=== PATIENT | male | born 1955 | race Caucasian/White ===

== ENCOUNTER 2018-05-20 11:14 | Outpatient (CLI) | payer MEDICARE ==
[~2018-05-20] VITALS: Ht 170.2 cm; Wt 90.9 kg
--- NOTE | ~2018-05-20 | OP ---
PATIENT NAME: HAILE CABEZAS MEDICAL RECORD: [id number] :51 LOCATION:D.CAT ADMISSION DATE: SURGEON: NILO HOLMAN MD DATE OF OPERATION: 05/20/2018 PROCEDURE: Left heart catheterization, selective coronary angiography, left femoral artery approach. CATHETERS: A 5-Greenlandic sheath, 5/4 left and right Michelle, 5/4 pig. We attempted PTCA stenting at the end of procedure. FINDINGS: Left ventriculography in 30-degree GUSTAFSON view shows severe global hypokinesis, reduced EF at 20% to 25%. CORONARY ANATOMY: LEFT MAIN: Left main is free of disease. LAD: Has an apparently totally occluded stent with left to left collaterals. CIRCUMFLEX: Left dominant system. Circumflex stents patent. RIGHT CORONARY ARTERY: Rudimentary, totally occluded. We did the PTCA. Multiple wires were attempted to be passed across the occluded LAD in hopes to be soft plaque; however, despite multiple wires we were unable to cross the total occlusion and the procedure was terminated with continued DAPHNE 3 flow distal to the lesion. OVERALL IMPRESSION: Unsuccessful PTCA stenting of the LAD. TRANSINT:[id number] Voice Confirmation ID: [id number] DOCUMENT ID: [id number] NILO HOLMAN MD at 1314 CC: [id number] DICTATION DATE: 05/20/18 1521 GEOLOGICAL SPECIALIST: 05/20/18 1528 DEP CLI 05/20/18 [place] [id number] [place] [id number]
--- NOTE | ~2018-05-20 | HEMODYNAMI ---
PATIENT:HAILE CABEZAS MEDICAL RECORD: [id number] : 51 LOCATION:[facility] ADMISSION DATE: 05/20/18 Generatedon:05/20/201815:13 Patient name: HAILE CABEZAS Patient #: [id number] SSN: : 1955 Date of study: 05/20/2018 Page: Of Hemodynamic Procedure Report Patient Data Patient Demographics Procedure consent was obtained First Name: HAILE Gender: Male Last Name: JOCELYNN : 1955 Patient #: [id number] Age: 62 year(s) Race: Unknown Additional ID: [id number] Contact details Address: [place] [address] State: [place] City: [place] Zip code: [address] Past Medical History Allergies Allergen Reaction Date Comments Reported Other allergy 05/20/2018 corticosteroids, Erythromycin base, morphine, PCN, Sulfa Admission Admission Data Admission Date: 05/20/2018 Admission Time: 11:14 Height (in.): 68 BSA: 2.07 (m2) Height (cm.): 172.72 BMI: 31.17 (kg/m2) Weight (lbs.): 205 Weight (kg.): 92.99 Procedure Procedure Types Cath Procedure Diagnostic Procedure [facility] w/Coronaries Sedation Charges Moderate Sedation up to 30 minutes Procedure Description Procedure Date Procedure Date: 05/20/2018 Procedure Start Time: 14:36 Procedure End Time: 15:10 Procedure Staff Name Function Luis Avery MD Performing Physician Nicola Parekh RT Scrub Paige Lunsford RT Monitor Gavin Aguilar RN Nurse Procedure Data Cath Procedure Fluoroscopy Diagnostic fluoroscopy Total fluoroscopy Time: 8.9 time: 8.9 min min Diagnostic fluoroscopy Total fluoroscopy dose: dose: 2094 mGy 2094 mGy Contrast Material Contrast Material Type Amount (ml) Isovue 300 117 Entry Location Entry Primary Successful Side Size Upsize Upsize Entry Closure Succes sful Closure Location (Fr) 1 (Fr) 2 (Fr) Remarks Device Remarks Femoral Left 5 Fr 6 Fr Exoseal artery Short Estimated blood loss: 10 ml Diagnostic catheters Device Type Used For End Catheter Placement MULTIPACK JL 4.0 5Fr Procedure catheter MULTIPACK 3DRC 5Fr Procedure catheter MULTIPACK Pigtail 5 Fr Procedure catheter Procedure Complications No complications Procedure Medications Medication Administration Route Dosage 0.9% NaCl I.V. 10 ml/hr Oxygen etCO2 Nasal cannula 2 l/min Heparin Flush Bag added to field 2 bags (1000units/500ml NS) Lidocaine 2% added to field 20 Versed I.V. 2 mg Fentanyl I.V. 100 mcg Heparin Bolus I.V. 5000 units Integrilin (Bolus I.V. 8.5 ml 2mg/ml) Integrilin (Bolus wasted 1.5 ml 2mg/ml) Hemodynamics Rest O2 Consumption: Estimated: 241.12 (ml/min) O2 Consumption indexed: Estimated:116 .48 (ml/min/m) Heart Rate: 69 (bpm) Pressure Samples Time Site Value (mmHg) Purpose Heart Use Rate(bpm) 14:49 LV 116/14,25 Snapshot 69 14:50 LV 113/16,27 Pullback 71 14:50 AO 111/55(78) Pullback 71 Gradients Valve Time Site 1 Site 2 Mean SEP/DFP Peak To Heart Use (mmHg) (sec/min) Peak Rate (mmHg) (bpm) Aortic 14:50 LV AO 1 13 2 71 113/16,27 111/55(78) Calculations Valve P-P Mean Valve Index Valve Source Name Gradient Area Flow (cm2) Aortic 2 1 2 1 Snapshots Pre Cath Intra NCS Post Cath Vital Signs Time Heart Resp SPO2 etCO2 NIBP (mmHg) Rhythm Pain Sedation Rate (ipm) (%) (mmHg) Status Level (bpm) 14:27:14 77 23 99 30.7 135/62(106) NSR 0 (11) 10(A) , No pain 14:32:01 72 14 100 14.2 123/67(95) NSR 0 (11) 10(A) , No pain 14:36:46 73 22 100 30.7 129/71(109) NSR 0 (11) 10(A) , No pain 14:41:28 71 20 100 28.4 123/70(101) NSR 0 (11) 10(A) , No pain 14:46:11 71 16 98 29.9 123/71(94) NSR 0 (11) 10(A) , No pain 14:51:00 70 14 95 8.9 119/63(85) NSR 0 (11) 10(A) , No pain 14:55:46 69 13 96 13.4 124/62(89) NSR 0 (11) 9(A) , No pain 15:00:31 68 13 97 24.6 120/61(81) NSR 0 (11) 9(A) , No pain 15:05:16 68 13 97 26.9 122/60(99) NSR 0 (11) 10(A) , No pain 15:10:01 69 15 100 32.1 130/72(110) NSR 0 (11) 10(A) , No pain Medications Time Medication Route Dose Verified Delivered Reason Notes Effectiveness by by 14:25:30 0.9% NaCl I.V. 10 Gavin Gavin Per physician ml/hr Jeff Aguilar RN RN 14:25:39 Oxygen etCO2 2 Gavin Gavin Per physician Nasal l/min Jeff Aguilar cannula RN RN 14:25:50 Heparin Flush added 2 Gavin Gavin used for Bag to bags Jeff Aguilar procedure (1000units/500ml RN RN NS) 14:26:02 Lidocaine 2% added 20ml Gavin Gavin for local to vial Jeff Aguilar anesthetic field MONZON RN 14:38:59 Versed I.V. 2 mg Gavin Gavin for sedation Jeff Aguilar RN RN 14:39:10 Fentanyl I.V. 100 Gavin Gavin for sedation mcg Jeff Aguilar RN RN 14:53:58 Heparin Bolus I.V. 5000 Gavin Gavin for units Jeff Aguilar anticoagulation RN RN 14:54:11 Integrilin I.V. 8.5 Gavin Gavin for (Bolus 2mg/ml) ml Jeff Aguilar antiplatelet RN RN therapy 14:54:19 Integrilin wasted 1.5 Gavin Gavin for (Bolus 2mg/ml) ml Jeff Aguilar antiplatelet RN RN therapy Procedure Log Time Note 13:58:31 Patient Height : 68 inches 13:58:38 Patient Weight : 205 lbs 13:59:30 Diagnostic Cath status Elective 13:59:33 Gavin Aguilar RN sent for patient. Start room use. 13:59:34 Time tracking: Regular hours (M-F 7:00 - 5:00) 13:59:41 Plan of Care:Hemodynamics will remain stable., Cardiac rhythm will remain stable., Comfort level will be maintained., Respiratory function will remain adequate., Patient/ family verbilizes understanding of procedure., Procedure tolerated without complication., Recovers from procedure without complications.. 14:08:00 Patient received from Pre/Post Procedure Room to CCL 1 Alert and oriented. Tansferred to table in Supine position. 14:12:55 Warm blankets applied, and simran hugger turned on for patient comfort. 14:12:57 Correct patient and procedure confirmed by team. 14:12:59 Signed procedure consent form obtained from patient. 14:13:01 ECG and BP/O2 sat monitors applied to patient. 14:13:15 H&P Date Dictated: 05/15/2018 Within 30 days and on chart., H&P Addendum completed by physician on day of procedure. (MUST COMPLETE FOR ALL OUTPATIENTS). 14:13:17 Pre-procedure instructions explained to patient. 14:13:19 Family in patients room. 14:13:21 Patient NPO since Midnight. 14:14:09 Patient allergic to Other allergycorticosteroids, Erythromycin base, morphine, PCN, Sulfa 14:14:13 Is the patient allergic to Iodine/contrast media? No. 14:14:14 Was the patient premedicated? Yes 14:14:17 Is patient on blood thinner?Yes 14:25:30 0.9% NaCl 10 ml/hr I.V. was administered by Gavin Aguilar RN; Per physician; 14:25:39 Oxygen 2 l/min etCO2 Nasal cannula was administered by Gavin Aguilar RN; Per physician; 14:25:50 Heparin Flush Bag (1000units/500ml NS) 2 bags added to field was administered by Gavin Aguilar RN; used for procedure; 14:26:02 Lidocaine 2% 20ml vial added to field was administered by Gavin Aguilar RN; for local anesthetic; 14:26:12 Vital chart was started 14:28:24 ACC The patient was administered the following blood thiners within the last 24 hours: ACCEffient 14:28:27 Patient diabetic? Yes. 14:28:28 If diabetic: On Metformin? No 14:28:37 Snore? Yes 14:28:38 Sleep apnea? Yes 14:28:49 Patient pain scale 0/10 ?. 14:29:01 IV patent on arrival in right forearm with 0.9% NaCl at [facility]. 14:29:06 Lab results completed and on chart. 14:29:10 Bilateral groins area was prepped with chlora-prep and draped in sterile fashion 14:29:12 Sharps counted by scrub and verified by R.N. 14:29:12 Alarms reviewed by R. N. 14:29:13 Physician paged 14:29:14 --------ALL STOP TIME OUT------ 14:29:14 Physician arrived 14:29:15 Final Timeout: patient, procedure, and site verified with staff and physician. All members of the team are in agreement. 14:29:18 Bilateral groins site verified by team. 14:29:22 Physical assessment completed. ASA score P 2 - A patient with mild systemic disease as per Luis Avery MD. 14:29:26 Sedation plan: IV Moderate Sedation Medication:Versed, Fentanyl 14:31:09 Use device set Femoral Dx 14:31:10 ACIST Syringe (09986) opened to sterile field. 14:31:11 Bag Decanter (2002) opened to sterile field. 14:31:12 DIAGNOSTIC WIRE .035 260cm J wire (415462) opened to sterile field. 14:31:12 Medline Cath Pack ([id number]) opened to sterile field. 14:31:13 ACIST Hand Control (10763) opened to sterile field. 14:31:14 DIAGNOSTIC Multipack 5Fr catheter set (EQ5633) opened to sterile field. 14:31:14 ACIST Manifold (24091) opened to sterile field. 14:31:15 Tegaderm 4 x 4 (1626W) opened to sterile field. 14:31:17 PERCUTANEOUS ENTRY 19GA needle opened to sterile field. 14:31:18 SHEATH Prelude 5Fr 0.035 (QXF-1K-52-035) opened to sterile field. 14:34:36 Full Disclosure recording started 14:34:36 Procedure started. 14:36:25 Local anesthetic to right femoral artery with Lidocaine 2% by Luis Avery MD.INITIAL ACCESS ONLY 14:36:48 Zero performed for pressure channel P1 14:36:57 Zero performed for pressure channel P1 14:37:09 Zero performed for pressure channel P1 14:38:59 Versed 2 mg I.V. was administered by Gavin Aguilar RN; for sedation; 14:39:10 Fentanyl 100 mcg I.V. was administered by Gavin Aguilar RN; for sedation; 14:40:59 Unable to access Rt groin. 14:41:14 Local anesthetic to left femerol artery with Lidocaine 2% by Luis Avery MD.ADDITIONAL ACCESS 14:41:26 A 5 Fr sheath was inserted into the Left Femoral artery 14:44:35 A MULTIPACK JL 4.0 5Fr catheter was advanced over the wire and used for Procedure. 14:44:59 LCA angiography performed. 14:47:34 Catheter removed. 14:47:41 A MULTIPACK 3DRC 5Fr catheter was advanced over the wire and used for Procedure. 14:47:46 RCA angiography performed. 14:48:35 Catheter removed. 14:48:49 A MULTIPACK Pigtail 5 Fr catheter was advanced over the wire and used for Procedure. 14:48:55 LV angiography performed. 14:48:59 LV gram done using GUSTAFSON 14:50:41 EF : 20 % 14:50:46 Catheter removed. 14:51:32 WHISPER 300cm guide wire ([id number]) opened to sterile field. 14:51:33 GUIDE 6FR XBLAD 3.5 catheter ([id number]) opened to sterile field. 14:51:47 SHEATH Prelude 6Fr 0.035 (DGP-0H-73-035) opened to sterile field. 14:51:47 INFLATOR Merit BasixCompak (DS8904) opened to sterile field. 14:51:56 Proceeding to intervention. 14:52:07 6 Fr XBLAD 3.5 guide catheter was inserted over the wire 14:52:42 Whisper wire advanced. 14:53:58 Heparin Bolus 5000 units I.V. was administered by Gavin Aguilar RN; for anticoagulation; 14:54:11 Integrilin (Bolus 2mg/ml) 8.5 ml I.V. was administered by Gavin Aguilar RN; for antiplatelet therapy; 14:54:19 Integrilin (Bolus 2mg/ml) 1.5 ml wasted was administered by Gavin Aguilar RN; for antiplatelet therapy; 15:01:02 Whisper wire unable to cross lesion 15:01:08 cougar wire advanced. 15:01:22 COUGAR 300cm guide wire ([id number]) opened to sterile field. 15:03:03 cougar unable to cross lesion. 15:03:31 CHOICE PT Extra Support J 300cm guide wire ([id number]) opened to sterile field. 15:06:49 The EMERGE OTW 3.0 x 15 balloon ([id number]) was advanced and then removed because in body, not inflated 15:07:12 choice pt unable to cross the lesion. 15:07:18 Wire removed. 15:07:19 Guide catheter removed. 15:07:32 EXOSEAL 6Fr (EX600) opened to sterile field. 15:08:03 Sheath removed intact; hemostasis achieved with Exoseal to the Left Femoral artery. 15:08:03 Sheath upsized to a 6 Fr Short. 15:08:12 Procedure ended.(Physican Out) 15:08:31 Fluoroscopy time 08.90 minutes. 15:08:37 Fluoroscopy dose: 2094 mGy 15:08:37 Flurop Dose total: 2094 15:08:42 Contrast amount:Isovue 300 117ml. 15:08:44 Sharps counted by scrub and verified by R.N. 15:08:46 Insertion/operative site no bleeding no hematoma. 15:08:49 Post-op/insertion site Right Femoral artery dressed using a 4 x 4 and Tegaderm. 15:08:52 Post Procedure Pulses reassessed and unchanged 15:08:56 Post procedure rhythm: unchanged. 15:08:59 Estimated blood loss: 10 ml 15:09:41 Procedure type changed to Cath procedure, Diagnostic procedure, LHC, C w/Coronaries, Sedation Charges, Moderate Sedation up to 30 minutes 15:09:43 Procedure and supply charges have been captured, reviewed, submitted and are correct. 15:10:07 Procedure Complication : No complications 15:10:10 Vital chart was stopped 15:10:11 See physician's report for complete and final results. 15:10:14 Report given to Pre/Post Procedure Room. 15:10:17 Patient transfered to Pre/Post Procedure Room with Stretcher. 15:10:19 Full Disclosure recording stopped 15::19 Procedure ended. 15:10:22 End room use (Document Last) Intervention Summary Intervention Notes Time ActionType Lesion and Equipment Action# Pressure Duration Attributes Used 15:06:49 Discard EMERGE OTW Balloon 3.0 x 15 balloon ([id number]) Device Usage Item Name Manufacture Quantity Catalog Number Hospital Part Current Minimal Lot# / Charge Number Stock Stock Serial# Code ACIST Syringe Acist 1 03859 321386 994614 104245 20 (53874) Medical Systems MooBella Bag Decanter Microtek 1 2001S 256072 86813 369501 5 (2001S) Medical Inc. Medline Cath Cardinal 1 [id number] 677592 31621 190903 5 Pack Health ([id number]) DIAGNOSTIC WIRE St Omar 1 066639 884612 008905 382572 30 .035 260cm J wire (827307) ACIST Hand Acist 1 04815 893154 846302 408176 5 Control (22256) Medical Systems Inc ACIST Manifold Acist 1 43953 571226 931073 146532 5 (05621) Medical Systems Inc DIAGNOSTIC Cardinal 1 [id number] 403107 47996 196755 30 Multipack 5Fr Health catheter set (IE7631) Tegaderm 4 x 4 3M 1 1626W 653991 781516 909585 5 (1626W) PERCUTANEOUS Cook Medical 1 S97209 796513 674850 5 ENTRY 19GA needle SHEATH Prelude Merit 1 [id number]-5Z-[id number] 748663 320359 987654 5 5Fr 0.035 Medical (JRN-8M-87-035) MULTIPACK JL Cardinal 1 122286 5 4.0 5Fr Health catheter MULTIPACK 3DRC Cardinal 1 780144 5 5Fr catheter Health MULTIPACK Cardinal 1 491249 5 Pigtail 5 Fr Health catheter WHISPER 300cm [place] 1 [id number] 154116 981600 862385 5 guide wire Vascular ([id number]) GUIDE 6FR XBLAD Cardinal 1 [id number] 279289 329636 346330 10 3.5 catheter Health (68417572) INFLATOR Merit Merit 1 WJ5405 990728 071225 610720 15 BasixCast Iron Systems Medical (DP9813) SHEATH Prelude Merit 1 JOH-0N-17-35 152835 9248970 470110 5 6Fr 0.035 Medical (SJQ-0L-34-035) COUGAR 300cm Lomas 1 [id number] 837977 303610 553275 1 guide wire Vascular ([id number]) CHOICE PT Extra [place] 1 [id number] 915623 675047 996523 5 Support J 300cm Scientific guide wire ([id number]) EMERGE OTW 3.0 [place] 1 [id number] 773171 083600 088398 5 [id number] x 15 balloon Scientific ([id number]) EXOSEAL 6Fr Cardinal 1 EX600 145481 787330 559418 10 (EX600) Health Signature Audit [place] Stage Time Signature Unsigned Intra-Procedure 05/20/2018 Paige Lunsford 3:11:07 PM RT(R) Signatures Monitor : Paige Lunsford Signature : RT Date : Time : [place] [id number] [place] [address]
[2018-05-20] MEDS ORDERED: PRINIVIL20 MG (12:02)
[2018-05-20] MEDS ORDERED: KLONOPIN1 MG PO (12:02)
[2018-05-20] MEDS ORDERED: COREG25 MG PO (12:03)
[2018-05-20] MEDS ORDERED: EFFIENT10 MG PO (12:03)
[2018-05-20] MEDS ORDERED: GABAPENTIN100 MG PO (12:03)
[2018-05-20] MEDS ORDERED: VERELAN180 MG PO (12:03)
[2018-05-20] MEDS ORDERED: BASAGLAR K100 UNIT/1 SC (12:04)
[2018-05-20] MEDS ORDERED: NOVOLIN 70/30 110 ML (12:04)
[2018-05-20] MEDS ORDERED: RENVELA800 MG PO (12:05)
[2018-05-20] MEDS ORDERED: BUMEX2 MG (12:06)
[2018-05-20 12:14] VITALS: BP 120/59; Ht 170.2 cm; Wt 90.9 kg
[2018-05-20 12:15] LABS: BASOPHILS 0.5 % (0-2); EOSINOPHILS 2.5 % (0-7); HEMATOCRIT 28.7 % (42.0-54.0); HEMOGLOBIN 9.4 g/dL (13.5-17.5); IMMATURE GRANULOCYTES 0.4 % (0-5); LYMPHOCYTES 14.3 % (15-50); MCH 34.1 pg (26.0-34.0); MCHC 32.8 g/dL (31.0-37.0); MEAN PLATELET VOLUME 10.3 fL (7.4-10.4); MONOCYTES 12.1 % (2-11); NEUTROPHILS 70.2 % (40-80); PLATELET COUNT 148 10x3/uL (130-400); RBC 2.76 10x6/uL (4.20-6.10); RDW 14.5 % (11.5-14.5); WBC 5.6 10x3/uL (4.8-10.8)
[2018-05-20 12:26] LABS: ANION GAP 16.4 mmol/L (8-16); CALCIUM 8.9 mg/dL (8.5-10.1); CARBON DIOXIDE 27.1 mmol/L (21.0-32.0); CREATININE - SERUM 8.6 mg/dL (0.6-1.3); POTASSIUM - SERUM 4.5 mmol/L (3.5-5.1)
[2018-05-20 12:27] LABS: INR 1.07 (0.85-1.17); PROTIME 13.5 SECONDS (11.6-15.0)
[2018-05-20] MEDS ORDERED: ENTRESTO 24 MG1 EACH PO (15:59)
== END 2018-05-20 18:37 | disposition home or self-care (01) ==
LOC: D.CATH 11:14
PROVIDERS: Internal Medicine Interventional Cardiology
DX: I25.119 Atherosclerotic heart disease of native coronary artery with unspecified angina pectoris (principal); I25.82 Chronic total occlusion of coronary artery; Z01.812 Encounter for preprocedural laboratory examination; Z95.5 Presence of coronary angioplasty implant and graft

== ENCOUNTER 2018-09-04 10:44 | Outpatient (CLI) | payer MEDICARE ==
[2018-05-20 12:14] VITALS: BMI 31.4
[~2018-09-04 10:44] MED LIST: BASAGLAR K100 UNIT/1 SC; BUMEX2 MG; COREG25 MG PO; EFFIENT10 MG PO; ENTRESTO 24 MG1 EACH PO; GABAPENTIN100 MG PO; KLONOPIN1 MG PO; NOVOLIN 70/30 110 ML; PRINIVIL20 MG; RENVELA800 MG PO; VERELAN180 MG PO
--- NOTE | 2018-09-04 11:37 | NUR ---
RECEIVED PT FOR ADMISSION. PT'S REPORTS THAT PT HAD DIALYSIS ON SATURDAY AND HASN'T FELT VERY GOOD EVER SINCE. TOOK HIS VITALS. TEMP 101.1 HR 86 BP 107/48. 02 SAT 94% ON ROOM AIR. RESP 16. PT'S REPORTS THAT HE IS MORE LETHARGIC THAN NORMAL AND IS HAVING TROUBLE WALKING DUE TO WEAKNESS. HE HAD TO BE BROUGHT IN BY WHEELCHAIR. FLU SWAB SENT DOWN. SPOKE WITH DR. DUARTE AND PROCEDURE IS CANCELLED FOR TODAY. HE STATES HE WILL COME BY AND SPEAK WITH THE PT, BUT TO GO AHEAD AND FEED HIM FOR NOW. SPOKE WITH PT AND PT'S FAMILY AND THEY VOICED UNDERSTANDING.
--- NOTE | 2018-09-04 13:04 | NUR ---
DR. DUARTE ROUNDED AND SPOKE WITH PT AND PT'S . PT TO SEE PCP AT 3 PM TODAY. WILL RESCHEDULE AT A LATER TIME. PT TAKEN OUT B WHEELCHAIR TO VEHICLE.
== END 2018-09-04 13:05 | disposition home or self-care (01) ==
LOC: D.CATH 10:44
DX: I25.10 Atherosclerotic heart disease of native coronary artery without angina pectoris (principal); I10 Essential (primary) hypertension; E11.9 Type 2 diabetes mellitus without complications; Z01.812 Encounter for preprocedural laboratory examination; Z01.811 Encounter for preprocedural respiratory examination; Z01.810 Encounter for preprocedural cardiovascular examination; Z53.9 Procedure and treatment not carried out, unspecified reason

== ENCOUNTER 2018-09-11 11:16 | Outpatient (CLI) | payer MEDICARE ==
[~2018-09-11] VITALS: Ht 170.2 cm; Wt 90.9 kg
--- NOTE | ~2018-09-11 | HEMODYNAMI ---
PATIENT:HAILE CABEZAS MEDICAL RECORD: [id number] : 51 LOCATION:[facility] ADMISSION DATE: 09/11/18 Generatedon:09/11/201813:57 Patient name: HAILE CABEZAS Patient #: [id number] SSN: : 1955 Date of study: 09/11/2018 Page: Of Hemodynamic Procedure Report Patient Data Patient Demographics Procedure consent was obtained First Name: HAILE Gender: Male Last Name: JOCELYNN : 1955 Middle Initial: YUDITH Age: 63 year(s) Patient #: [id number] Race: Unknown Additional ID: [id number] Contact details Address: [place] [address] State: [place] City: [place] Zip code: [address] Past Medical History Allergies Allergen Reaction Date Comments Reported Other allergy 05/20/2018 corticosteroids, Erythromycin base, morphine, PCN, Sulfa Other allergy 09/11/2018 on chart Admission Admission Data Admission Date: 09/11/2018 Admission Time: 11:16 Admit Source: Other Lab Results Lab Result Date: 09/11/2018 Lab Result Time: 11:55 Biochemistry Name Units Result Min Max BUN mg/dl 52 --(----)-* 7 18 Creatinine mg/dl 6.7 --(----)-* 0.6 1.3 CBC Name Units Result Min Max Hematocrit % 28.9 *-(----)-- 42 54 Hemoglobin g/dl 9.5 *-(----)-- 13.5 17.5 Procedure Procedure Types Cath Procedure Peripheral Cath Diagnostic Procedure Women Designer Peripheral Procedures Euvdo-Ywcaheb-Deu-Off Procedure Description Procedure Date Procedure Date: 09/11/2018 Procedure Start Time: 13:36 Procedure End Time: 13:47 Procedure Staff Name Function Luis Avery MD Performing Physician Nicola Parekh RT Monitor Kenneth Mcpherson RT Scrub Jefe Donnelly RN Nurse Procedure Data Cath Procedure Fluoroscopy Diagnostic fluoroscopy Total fluoroscopy Time: 0.4 time: 0.4 min min Diagnostic fluoroscopy Total fluoroscopy dose: 152 dose: 152 mGy mGy Contrast Material Contrast Material Type Amount (ml) Isovue 300 108 Entry Location Entry Primary Successful Side Size Upsize Upsize Entry Closure Succes sful Closure Location (Fr) 1 (Fr) 2 (Fr) Remarks Device Remarks Femoral Right 5 Fr Exoseal artery Estimated blood loss: 5 ml Diagnostic catheters Device Type Used For End Catheter Placement DIAGNOSTIC UF 5Fr Procedure catheter ([id number]) Procedure Complications No complications Procedure Medications Medication Administration Route Dosage Versed I.V. 2 mg Fentanyl I.V. 100 mcg Versed I.V. 1 mg Fentanyl I.V. 50 mcg Versed I.V. 1 mg Oxygen etCO2 Nasal cannula 2 l/min Lidocaine 2% added to field 20 Heparin Flush Bag added to field 2 bags (1000units/500ml NS) 0.9% NaCl I.V. 25 ml/hr Hemodynamics Rest Heart Rate: 73 (bpm) Snapshots Pre Cath Intra NCS Post Cath Vital Signs Time Heart Resp SPO2 etCO2 NIBP Rhythm Pain Sedation Rate (ipm) (%) (mmHg) (mmHg) Status Level (bpm) 13:30:45 77 20 94 14.3 131/46(75) NSR 0 (11) 10(A) , No pain 13:35:03 73 16 94 30.2 129/44(90) NSR 0 (11) 10(A) , No pain 13:39:21 71 14 93 19.6 127/44(75) NSR 0 (11) 10(A) , No pain 13:43:37 79 14 96 22.6 118/48(87) NSR 0 (11) 9(A) , No pain 13:47:49 74 14 94 15.8 129/50(86) NSR 0 (11) 10(A) , No pain Medications Time Medication Route Dose Verified Delivered Reason Notes Effectiveness by by 13:30:55 Oxygen etCO2 2 Luis Mayberry used for Nasal l/min [facility] Prakash Donnelly sales and service representative cannula 13:35:02 Lidocaine 2% added 20ml Luis Smith for local to vial [facility] anesthetic field MD STRINGRE 13:35:08 Heparin Flush added 2 Luis Smith used for Bag to bags [facility] procedure (1000units/500ml field MD STRINGER NS) 13:36:55 0.9% NaCl I.V. 25 Luis Mayberry Per Pt is on ml/hr [facility] Prakash Donnelly RN physician hemodialysis. 13:37:01 Versed I.V. 2 mg [address] [facility] Prakash Donnelly RN sedation 13:37:07 Fentanyl I.V. 100 [address] for mcg [facility] Prakash Donnelly RN sedation 13:40:30 Versed I.V. 1 mg Luis Mayberry for [facility] Prakash Donnelly RN sedation 13:40:33 Fentanyl I.V. 50 Luis Mayberry for mcg [facility] Prakash Donnelly RN sedation 13:45:01 Versed I.V. 1 [address] [facility] Prakash Donnelly RN sedation Procedure Log Time Note 13:02:27 Informed consent obtained and on chart 13:03:18 Admit Source: Other 13:03:32 Diagnostic Cath status Elective 13:03:35 Jefe Donnelly RN sent for patient. Start room use. 13:03:36 Time tracking: Regular hours (M-F 7:00 - 5:00) 13:03:40 Plan of Care:Hemodynamics will remain stable., Cardiac rhythm will remain stable., Comfort level will be maintained., Respiratory function will remain adequate., Patient/ family verbilizes understanding of procedure., Procedure tolerated without complication., Recovers from procedure without complications.. 13:14:27 H&P Date Dictated: 09/11/2018 New H&P dictated by physician.. 13:14:43 Patient received from Pre/Post Procedure Room to CCL 1 Alert and oriented. Tansferred to table in Supine position. 13:14:44 Warm blankets applied, and simran hugger turned on for patient comfort. 13:14:44 Correct patient and procedure confirmed by team. 13:14:45 ECG and BP/O2 sat monitors applied to patient. 13:14:46 Pre-procedure instructions explained to patient. 13:14:46 Pre-op teaching completed and patient verbalized understanding. 13:14:47 Family in waiting room. 13:14:48 Patient NPO since Midnight. 13:29:25 Vital chart was started 13:30:55 Oxygen 2 l/min etCO2 Nasal cannula was administered by Jefe Donnelly RN; used for procedure; 13:32:32 Patient allergic to Other allergyon chart 13:32:34 Is the patient allergic to Iodine/contrast media? No. 13:32:35 Is patient on blood thinner?Yes 13:32:37 ACC The patient was administered the following blood thiners within the last 24 hours: ACCEffient 13:32:39 Patient diabetic? Yes. 13:32:40 If diabetic: On Metformin? No 13:32:42 Previous problem with sedation/anesthesia? No ? 13:32:42 Snore? Yes 13:32:43 Sleep apnea? Yes 13:32:43 Deviated septum? No 13:32:44 Opens mouth fully? Yes 13:32:45 Sticks out tongue? Yes 13:32:48 Dentures? No ? 13:32:49 Airway obstruction? No ? 13:32:53 Pre procedure: right dorsailis pedis pulse Doppler 13:32:56 Pre procedure: left dorsailis pedis pulse Doppler 13:32:58 Patient pain scale 0/10 ?. 13:34:11 IV patent on arrival in right forearm with 0.9% NaCl at [facility]. 13:34:13 Lab results completed and on chart. 13:35:02 Lidocaine 2% 20ml vial added to field was administered by Luis Avery MD; for local anesthetic; 13:35:08 Heparin Flush Bag (1000units/500ml NS) 2 bags added to field was administered by Luis Avery MD; used for procedure; 13:35:35 Lab Result : BUN 52 mg/dl 13:35:35 Lab Result : Hemoglobin 9.5 g/dl 13:35:35 Lab Result : Creatinine 6.7 mg/dl 13:35:35 Lab Result : Hematocrit 28.9 % 13:35:39 Bilateral groins area was prepped with chlora-prep and draped in sterile fashion 13:35:39 Alarms reviewed by R. N. 13:35:39 Sharps counted by scrub and verified by R.N. 13:35:42 ACIST Syringe (95375) opened to sterile field. 13:35:43 Bag Decanter (2002S) opened to sterile field. 13:35:43 Medline Cath Pack ([id number]) opened to sterile field. 13:35:44 ACIST Hand Control (08298) opened to sterile field. 13:35:44 ACIST Manifold (81929) opened to sterile field. 13:35:45 Tegaderm 4 x 4 (1626W) opened to sterile field. 13:35:46 SHEATH 5FR Alum Bank ([id number]) opened to sterile field. 13:35:48 DIAGNOSTIC WIRE .035 260cm J wire (817934) opened to sterile field. 13:35:58 Baseline sample Acquired. 13:36:01 Rhythm: sinus rhythm 13:36:02 Full Disclosure recording started 13:36:05 Physician arrived 13:36:05 --------ALL STOP TIME OUT------ 13:36:05 Final Timeout: patient, procedure, and site verified with staff and physician. All members of the team are in agreement. 13:36:08 Bilateral groins site verified by team. 13:36:11 Physical assessment completed. ASA score P 3 - A patient with severe systemic disease as per Luis Avery MD. 13:36:15 Sedation plan: IV Moderate Sedation Medication:Versed, Fentanyl 13:36:21 Procedure started. 13:36:23 Local anesthetic to right femoral artery with Lidocaine 2% by Luis Avery MD.INITIAL ACCESS ONLY 13:36:30 A 5 Fr sheath was inserted into the Right Femoral artery 13:36:44 A DIAGNOSTIC UF 5Fr catheter ([id number]) was advanced over the wire and used for Procedure. 13:36:55 0.9% NaCl 25 ml/hr I.V. was administered by Jefe Donnelly RN; Per physician; Pt is on hemodialysis. 13:36:55 Zero performed for pressure channel P1 13:37:01 Versed 2 mg I.V. was administered by Jefe Donnelly RN; for sedation; 13:37:07 Fentanyl 100 mcg I.V. was administered by Jefe Donnelly RN; for sedation; 13:37:22 Abdominal angiogram w/ runoff was performed. 13:37:59 Left leg runoff performed. 13:39:21 Right leg runoff performed. 13:40:30 Versed 1 mg I.V. was administered by Jefe Donnelly RN; for sedation; 13:40:33 Fentanyl 50 mcg I.V. was administered by Jefe Donnelly RN; for sedation; 13:43:01 Catheter removed. 13:43:07 EXOSEAL 5Fr (EX500) opened to sterile field. 13:43:33 Sheath removed intact; hemostasis achieved with Exoseal to the Right Femoral artery. 13:43:35 Procedure ended.(Physican Out) 13:44:40 Fluoroscopy time 00.40 minutes. 13:44:43 Fluoroscopy dose: 152 mGy 13:44:43 Flurop Dose total: 152 13:44:47 Contrast amount:Isovue 300 108ml. 13:44:48 Sharps counted by scrub and verified by R.N. 13:45:01 Versed 1 mg I.V. was administered by Jefe Donnelly RN; for sedation; 13:45:05 Insertion/operative site no bleeding no hematoma. 13:45:08 Post-op/insertion site Right Femoral artery dressed using a 4 x 4 and Tegaderm. 13:45:11 Post right femoral artery:stable, soft, clean and dry 13:46:10 Post Procedure Pulses reassessed and unchanged 13:46:12 Post-procedure physical assessment completed. ASA score P 3 - A patient with severe systemic disease as per Luis Avery MD. 13:46:21 Post procedure rhythm: sinus rhythm 13:46:34 Estimated blood loss: 5 ml 13:46:53 Post procedure instruction explained to patient.Patient verbalizes understanding. 13:46:53 Patient needs reinforcement of post procedure teaching. 13:47:25 Procedure and supply charges have been captured, reviewed, submitted and are correct. 13:47:27 Procedure Complication : No complications 13:47:28 Vital chart was stopped 13:47:29 See physician's report for complete and final results. 13:47:30 Report given to Pre/Post Procedure Room. 13:47:32 Patient transfered to Pre/Post Procedure Room with Stretcher. 13:47:34 Procedure ended. 13:47:34 Full Disclosure recording stopped 13:47:42 End room use (Document Last) Device Usage Item Name Manufacture Quantity Catalog Hospital Part Current Minimal L ot# / Number Charge Number Stock Stock Serial# Code ACIST Acist 1 52290 096551 294015 499128 20 Syringe Medical (57654) Systems Inc Bag Microtek 1 441465 06124 991985 5 Decanter Medical Inc. () Medline Medline 1 [id number] 704699 44909 290295 5 Cath Pack ([id number]) ACIST Hand Acist 1 75919 960863 773588 573803 5 Control Medical (57758) Systems Inc ACIST Acist 1 51637 195226 938692 124467 5 Manifold Medical (95641) Systems Inc Tegaderm 4 3M 1 1626W 482084 268644 062564 5 x 4 (1626W) SHEATH 5FR Terumo 1 [id number] 660962 840929 315016 5 Alum Bank (KDC596) DIAGNOSTIC St Omar 1 010082 280881 921527 332620 30 WIRE .035 260cm J wire (365442) DIAGNOSTIC Cardinal 1 [id number] 690133 535111 691516 10 UF 5Fr Health catheter ([id number]) EXOSEAL 5Fr Cardinal 1 EX500 638459 562787 292537 10 (EX500) Health Signature Audit [place] Stage Time Signature Unsigned Intra-Procedure 09/11/2018 Nicola Parekh 1:57:20 PM RT(R) Signatures Monitor : Nicola Parekh RT Signature : Date : Time : [id number] [place] [address]
[2018-09-11 11:52] VITALS: BP 99/44; Ht 170.2 cm; Wt 90.9 kg
[2018-09-11 12:12] LABS: ANION GAP 14.3 mmol/L (8-16); CALCIUM 9.2 mg/dL (8.5-10.1); CARBON DIOXIDE 27.9 mmol/L (21.0-32.0); CREATININE - SERUM 6.7 mg/dL (0.6-1.3); POTASSIUM - SERUM 4.2 mmol/L (3.5-5.1)
[2018-09-11 13:09] LABS: HEMATOCRIT 28.9 % (42.0-54.0); HEMOGLOBIN 9.5 g/dL (13.5-17.5); LYMPHOCYTES 19.6 % (15-50); MCH 36.1 pg (26.0-34.0); MCHC 32.9 g/dL (31.0-37.0); MCV 109.9 fL (80.0-100.0); MEAN PLATELET VOLUME 10.1 fL (7.4-10.4); NEUTROPHILS 70.2 % (40-80); PLATELET COUNT 165 10x3/uL (130-400); RBC 2.63 10x6/uL (4.20-6.10); RDW 15.2 % (11.5-14.5); WBC 4.7 10x3/uL (4.8-10.8)
--- NOTE | 2018-09-11 14:13 | NUR ---
RECEIVED PT TO ROOM, PT SLEEPING, AWAKENS EASILY TO VERBAL STIMULI. DENIES ANY C/O. DRESSING CDI TO RIGHT GROIN, AREA IS SOFT AND NONTENDER. PEDAL PULSES BY DOPPLER. HOB IS FLAT, VSS. AT BEDSIDE, DR HOLMAN HAS ROUNDED ON PT. CALL LIGHT IN REACH.
--- NOTE | 2018-09-11 14:29 | NUR ---
DRESSING CDI TO RIGHT GROIN, AREA IS SOFT AND NONTENDER. PEDAL PULSES BY DOPPLER. PT SLEEPING INTERMITTENTLY, AWAKENS EASILY AND DENIES ANY C/O. HOB IS FLAT, AT BEDSIDE.
--- NOTE | 2018-09-11 14:58 | NUR ---
DRESSING CDI RIGHT GROIN, AREA IS SOFT AND NONTENDER. PEDAL PULSES BY DOPPLER. VSS, DENIES ANY C/O. HOB ELEVATED 30 DEGREES, SANDWICH AND PO FLUIDS SERVED. FAMILY AT BEDSIDE. CALL LIGHT IN REACH.
--- NOTE | 2018-09-11 15:14 | NUR ---
DDRESSING CDI TO RIGHT GROIN, PEDAL PULSES BY DOPPLER. PT DENIES ANY C/O. SANDWICH AND PO FLUIDS AT BEDSIDE. AND DAUGHTER AT BEDSIDE. HOB ELEVATED 45 DEGREES. VSS. CALL LIGHT IN REACH.
--- NOTE | 2018-09-11 15:54 | NUR ---
DRESSING REMAINS CDI, AREA IS SOFT AND NONTENDER. PT DENIES ANY C/O. HAS TOLERATED SANDWICH AND PO FLUIDS WITH NO C/O NAUSEA. IV DC'D WITH CATH INTACT. DC INSTRUCTIONS REVIEWED WITH PT AND WHO VERBALIZE UNDERSTANDING.
--- NOTE | 2018-09-11 16:17 | NUR ---
ASSISTED PT WITH DRESSING FOR DC TO HOME. DRESING REMAINS CDI TO RIGHT GROIN, AREA IS SOFT AND NONTENDER. PT DENIES ANY C/O. PT HAS ALL PERSONAL BELONGINGS AND DC INSTRUCTIONS AT TIME OF DC. PT ESCORTED TO PRIVATE AUTO VIA WC BY NURSE WITH DRIVING HIM HOME.
--- NOTE | 2018-09-16 15:01 | HP ---
PATIENT: HAILE CABEZAS MEDICAL RECORD: [id number] ACCOUNT: [id number] LOCATION:[facility] : 51 ADMISSION DATE: 09/11/18 PCP: EUSEBIA LEAL MD HISTORY AND PHYSICAL EXAMINATION INTERIM HISTORY AND PHYSICAL HISTORY OF PRESENT ILLNESS: A 63-year-old gentleman admitted with a history of coronary artery disease, recently presented with claudication was scheduled to undergo abdominal femoral runoff; however, he had upper respiratory tract infection that required postpone of the above procedure. PAST MEDICAL HISTORY: Includes; 1. History of renal failure. 2. Hypertension. 3. Diabetes mellitus. PHYSICAL EXAMINATION: GENERAL: A middle-aged gentleman in no acute distress. HEENT: Normocephalic, atraumatic. NECK: No bruits noted. HEART: Regular, II/ systolic ejection murmur. LUNGS: Good air excursion. ABDOMEN: Soft, nontender. EXTREMITIES: Pulse was decreased. IMPRESSION AND PLAN: Abdominal femoral runoff, intervention based on above. TRANSINT:[id number] Voice Confirmation ID: [id number] DOCUMENT ID: [id number] NILO HOLMAN MD at 1501 CC: [id number] DICTATION DATE: 09/11/18 1310 GARMENT FORM ASSEMBLER: 09/11/18 1353 DEP CLI 09/11/18 [id number] [place] [address]
--- NOTE | 2018-09-16 15:01 | OP ---
PATIENT NAME: HAILE CABEZAS MEDICAL RECORD: [id number] :51 LOCATION:[facility] ADMISSION DATE: SURGEON: NILO HOLMAN MD DATE OF OPERATION: 09/11/2018 PROCEDURE: AFRO. Right femoral artery was cannulated. IMT catheter was placed to the level of the renal arteries. AFRO was performed. Abdominal aorta shows no evidence of dissection. Multiple calcific areas. No evidence of aneurysm. LEFT SYSTEM: Left iliac system shows a discrete stenosis in mid portion of probably 80%. Distal to the SFA, this shows severe diffuse stenosis, was probably greater than 90% throughout the vessel with poor 2-vessel runoff distally. RIGHT: Right iliac system has an ostial stenosis at the takeoff of the bifurcation of about 80% distally. At the takeoff of the SFA, there is again severely diffuse diseased right SFA with 2-vessel albeit poor runoff distally. 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 We will consult Dr. Fajardo for other option. TRANSINT:[id number] Voice Confirmation ID: [id number] DOCUMENT ID: [id number] NILO HOLMAN MD at 1501 CC: [id number] DICTATION DATE: 09/11/18 1425 INJECTOR ASSEMBLER: 09/11/18 1801 DEP CLI 09/11/18 [id number] [place] [address]
== END 2018-09-11 16:10 | disposition home or self-care (01) ==
LOC: D.CATH 11:16
PROVIDERS: Internal Medicine Interventional Cardiology
DX: E11.51 Type 2 diabetes mellitus with diabetic peripheral angiopathy without gangrene (principal); I70.213 Atherosclerosis of native arteries of extremities with intermittent claudication, bilateral legs

== ENCOUNTER → 2018-09-25 09:48 | Outpatient (CLI) | payer MEDICARE ==
[2018-09-11 11:52] VITALS: BMI 31.4
== END | disposition home or self-care (01) ==
LOC: D.CT 09-22 12:30 → D.US 09-22 13:00
DX: I70.213 Atherosclerosis of native arteries of extremities with intermittent claudication, bilateral legs (principal); I65.23 Occlusion and stenosis of bilateral carotid arteries; I25.10 Atherosclerotic heart disease of native coronary artery without angina pectoris

== ENCOUNTER 2018-10-28 07:37 | Outpatient (CLI) | payer MEDICARE ==
[~2018-10-28] VITALS: Ht 170.2 cm; Wt 90.9 kg
--- NOTE | ~2018-10-28 | HEMODYNAMI ---
PATIENT:HAILE CABEZAS MEDICAL RECORD: [id number] : 51 LOCATION:[facility] ADMISSION DATE: 10/28/18 Generatedon:10/28/201812:03 Patient name: HAILE CABEZAS Patient #: [id number] SSN: : 1955 Date of study: 10/28/2018 Page: Of Hemodynamic Procedure Report Patient Data Patient Demographics Procedure consent was obtained First Name: HAILE Gender: Male Last Name: JOCELYNN : 1955 Middle Initial: YUDITH Age: 63 year(s) Patient #: [id number] Race: Unknown Additional ID: [id number] Contact details Address: [address] [address] State: [place] City: [place] Zip code: [address] Past Medical History Allergies Allergen Reaction Date Comments Reported Other 05/20/2018 corticosteroids, allergy Erythromycin base, morphine, PCN, Sulfa Other 09/11/2018 on chart allergy Other 10/28/2018 CORTICO allergy STEROIDS,ERYTHROMICIN ,MORPHINE,PCN,LIDOCAINE AND BENADRYL Admission Admission Data Admission Date: 10/28/2018 Admission Time: 7:37 Procedure Procedure Types Cath Procedure Peripheral Cath Diagnostic Procedure Abd/Extremity Extremities AFRO Lower Ext Arterio Procedure Description Procedure Date Procedure Date: 10/28/2018 Procedure Start Time: 10:45 Procedure Staff Name Function Prakash Nevarez MD Performing Physician James Vernon RT Monitor Anastasiia Cool Scrub Brooke Evans RN Nurse Procedure Data Cath Procedure Fluoroscopy Diagnostic fluoroscopy Total fluoroscopy Time: 1.4 time: 1.4 min min Diagnostic fluoroscopy Total fluoroscopy dose: 201 dose: 201 mGy mGy Contrast Material Contrast Material Type Amount (ml) Isovue 300 25 Entry Location Entry Primary Successful Side Size Upsize Upsize Entry Closure Succes sful Closure Location (Fr) 1 (Fr) 2 (Fr) Remarks Device Remarks Femoral Right 5 Fr Exoseal artery Procedure Medications Medication Administration Route Dosage Heparin Flush Bag added to field 3 bags (1000units/500ml NS) Lidocaine 1% added to field 20 Solumedrol I.V. 125 mg Versed I.V. 1 mg Fentanyl I.V. 50 mcg Zofran I.V. 8 mg Hemodynamics Rest Heart Rate: 83 (bpm) Snapshots Pre Cath Intra NCS Post Cath Vital Signs Time Heart Resp SPO2 etCO2 NIBP (mmHg) Rhythm Pain Sedation Rate (ipm) (%) (mmHg) Status Level (bpm) 10:40:55 80 26 24.2 133/69(107) NSR 0 (11) 10(A) , No pain 10:44:44 82 26 94 21.2 Measuring NSR 0 (11) 10(A) , No pain 10:45:30 83 19 97 25.7 135/76(112) NSR 0 (11) 10(A) , No pain 10:49:56 83 23 96 25.7 135/76(111) NSR 0 (11) 9(A) , No pain 10:54:22 81 16 96 25.7 145/72(109) NSR 0 (11) 9(A) , No pain 10:58:46 70 17 98 24.2 109/48(67) NSR 0 (11) 9(A) , No pain 11:03:02 74 6 96 0 108/96(104) NSR 0 (11) 9(A) , No pain 11:04:59 83 27 88 0 76/50(62) NSR 0 (11) 9(A) , No pain 11:09:58 94 24 94 0.7 Measuring NSR 0 (11) 9(A) , No pain 11:10:47 94 8 94 0.7 Disturbed NSR 0 (11) 9(A) , No pain 11:12:05 94 33 96 0.7 Aborted NSR 0 (11) 9(A) , No pain 11:12:42 93 33 96 0.7 Aborted NSR 0 (11) 10(A) , No pain 11:14:39 92 3 98 0.7 136/63(91) NSR 0 (11) 10(A) , No pain 11:19:11 88 32 97 0.7 127/64(91) NSR 0 (11) 10(A) , No pain 11:23:38 84 23 98 1.5 111/59(94) NSR 0 (11) 10(A) , No pain 11:27:55 81 36 0 114/58(85) NSR 0 (11) 10(A) , No pain 11:31:55 0 No Cuff NSR 0 (11) 10(A) , No pain 11:35:55 No Cuff NSR 0 (11) 10(A) , No pain 11:39:55 0 No Cuff NSR 0 (11) 10(A) , No pain 11:43:54 0 No Cuff NSR 0 (11) 10(A) , No pain 11:47:54 0 No Cuff NSR 0 (11) 10(A) , No pain 11:51:53 0 No Cuff NSR 0 (11) 10(A) , No pain 11:55:53 0 No Cuff NSR 0 (11) 10(A) , No pain 11:59:53 0 No Cuff NSR 0 (11) 10(A) , No pain Medications Time Medication Route Dose Verified Delivered Reason Notes Effe ctiveness by by 10:36:17 Heparin Flush added 3 Prakash Randall used for Bag to bags Roque Nevarez MD procedure (1000units/500ml field STRINGER NS) 10:36:30 Lidocaine 1% added 20ml Prakash Randall for local to vial Roque Nevarez MD anesthetic field STRINGER 10:46:55 Solumedrol I.V. 125 Prakash Cox Per mg Nathan Nevarez RN physician 10:47:06 Versed I.V. 1 mg Prakash Cox for Nathan Nevarez RN sedation 10:47:19 Fentanyl I.V. 50 Prakash Brooke for mcg Nathan Nevarez RN sedation 11:10:12 Zofran I.V. 8 mg Prakash Cox Per Nathan Nevarez RN physician Procedure Log Time Note 9:50:16 James Vernon RT (R) (CV) sent for patient. Start room use. 9:50:23 Time tracking: Regular hours (M-F 7:00 - 5:00) 9:50:29 Plan of Care:Hemodynamics will remain stable., Cardiac rhythm will remain stable., Comfort level will be maintained., Respiratory function will remain adequate., Patient/ family verbilizes understanding of procedure., Procedure tolerated without complication., Recovers from procedure without complications.. 9:50:43 Patient received from Outpatients to Alert and oriented. Tansferred to table in Supine position. 9:50:44 Correct patient and procedure confirmed by team. 9:50:46 Signed procedure consent form obtained from patient. 9:50:47 ECG and BP/O2 sat monitors applied to patient. 9:50:48 Full Disclosure recording started 9:50:52 Use device set IR Diagnostic 9:50:53 ACIST Syringe (47990) opened to sterile field. 9:50:53 ACIST Hand Control (85204) opened to sterile field. 9:50:54 ACIST Manifold (56339) opened to sterile field. 9:50:54 Bag Decanter (2001S) opened to sterile field. 9:50:54 Sterile Angiographic Pack opened to sterile field. 9:50:55 Tegaderm 4 x 4 (1626W) opened to sterile field. 9:51:01 - 9:51:04 H&P Date Dictated: 10/28/2018 H&P Addendum completed by physician on day of procedure. (MUST COMPLETE FOR ALL OUTPATIENTS). 9:51:05 Pre-procedure instructions explained to patient. 9:51:05 Pre-op teaching completed and patient verbalized understanding. 9:51:06 Family in waiting room. 9:51:08 Patient NPO since Midnight. 9:52:21 Patient allergic to Other allergyCORTICO STEROIDS,ERYTHROMICIN ,MORPHINE,PCN,LIDOCAINE AND BENADRYL 9:52:25 Is the patient allergic to Iodine/contrast media? Yes. 9:52:28 Is patient on blood thinner?Yes 9:52:39 ACC The patient was administered the following blood thiners within the last 24 hours: ACCEffient 9:52:42 Patient diabetic? Yes. 9:52:44 If diabetic: On Metformin? Yes 9:52:51 - 9:52:52 ----Pre-sedation anethsthesia assessment.---- 9:52:55 Previous problem with sedation/anesthesia? No ? 9:52:57 Snore? Yes 9:52:59 Sleep apnea? Yes 9:53:00 Deviated septum? No 9:53:02 Opens mouth fully? Yes 9:53:03 Sticks out tongue? Yes 9:53:08 Airway obstruction? No ? 9:53:10 Dentures? Yes ? 9:53:12 - 10:31:43 IV patent on arrival in right hand with 0.9% NaCl at [facility]. 10:36:17 Heparin Flush Bag (1000units/500ml NS) 3 bags added to field was administered by Prakash Nevarez MD; used for procedure; 10:36:30 Lidocaine 1% 20ml vial added to field was administered by Prakash Nevarez MD; for local anesthetic; 10:42:55 Vital chart was started 10:42:56 Baseline sample Acquired. 10:43:00 Alarms reviewed by Carmen Gregg 10:43:01 Sharps counted by scrub and verified by RDawood. 10:43:06 Right groin area was prepped with chlora-prep and draped in sterile fashion 10:43:07 Physician arrived 10:43:07 --------ALL STOP TIME OUT------ 10:43:08 Final Timeout: patient, procedure, and site verified with staff and physician. All members of the team are in agreement. 10:43:11 Right groin site verified by team. 10:43:15 Fire Safety Assessment: A--An alcohol-based skin anteseptic being used preoperatively., C--Open oxygen or nitrous oxide is being used. 10:43:20 Sedation plan: IV Moderate Sedation Medication:Versed, Fentanyl 10:45:07 Procedure started. 10:45:11 Local anesthetic to right femoral artery with Lidocaine 1% by Prakash Nevarez MD.INITIAL ACCESS ONLY 10:45:13 Access obtained with 4Fr micropunture. 10:45:24 A 5 Fr sheath was inserted into the Right Femoral artery 10:45:29 Angiodynamics Omniflush 5Fr 65cm ([id number]) opened to sterile field. 10:45:30 DOC .035 wire (L57090) opened to sterile field. 10:45:30 Micropuncture VSI 4FR kit opened to sterile field. 10:45:30 SHEATH 5FR [place] (TKU091) opened to sterile field. 10:45:31 TUBING Contrast Injection High Pressure (GCZ187C) opened to sterile field. 10:45:49 CARDOSO 260 wire (Y40346) opened to sterile field. 10:46:55 Solumedrol 125 mg I.V. was administered by Brooke Evans RN; Per physician; 10:47:06 Versed 1 mg I.V. was administered by Brooke Evans RN; for sedation; 10:47:19 Fentanyl 50 mcg I.V. was administered by Brooke Evans RN; for sedation ; 10:47:54 AMPLATZ Super Stiff 75cm wire ([id number]) opened to sterile field. 10:50:07 GLIDE CATHETER 5FR ANGLED 65cm (CG507) opened to sterile field. 10:53:03 MAGIC TORQUE 180cm 0.035 wire ([id number]) opened to sterile field. 11:10:12 Zofran 8 mg I.V. was administered by Brooke Evans RN; Per physician; 11:20:33 EXOSEAL 5Fr (EX500) opened to sterile field. 11:22:31 Sheath removed intact; hemostasis achieved with Exoseal to the Right Femoral artery. 11:22:34 Procedure ended.(Physican Out) 11:22:49 Fluoroscopy time 01.40 minutes. 11:22:55 Fluoroscopy dose: 201 mGy 11::55 Flurop Dose total: 201 11:24:14 Post-op/insertion site Right Femoral artery dressed using a 4 x 4 and Tegaderm. 11:24:18 Post right femoral artery:stable 11:24:21 Post Procedure Pulses reassessed and unchanged 11:24:49 Contrast amount:Isovue 300 25ml. 11:41:03 1110- PT BECAME NAUSEOUS- ZOFRAN 8MG GIVEN IVP 1113-EMESIS NOTED- SUCTION USED. PT DIAPHORETIC AND NON COOPERATIVE. 1114-CALLED ANESTHESIA FOR ASSISTANCE WITH SEDATION. 1115- HIGH FLOW OXYGEN -SAT AT 90. PROCEDURE ABORTED. 12:03:41 Vital chart was stopped Device Usage Item Name Manufacture Quantity Catalog Hospital Part Current Minim al Lot# / Number Charge Number Stock Stock Serial# Code ACIST Syringe Acist Medical 1 08068 030129 301243 323470 20 (63872) Systems Inc ACIST Hand Acist Medical 1 29412 109098 708155 364120 5 Control Systems [employer] (52886) ACIST Acist Medical 1 99489 631656 955702 641054 5 Manifold Systems [employer] (07681) Bag Decanter Microtek 1 2001S 529342 51311 229129 5 (2001S) Medical Inc. Sterile Cardinal 1 [id number] 695329 551513 5 Angiographic Health Pack Tegaderm 4 x 3M 1 1626W 058870 004694 328154 5 4 (1626W) Angiodynamics Angiodynamics 1 86557558 345692 237480 081588 5 Omniflush 5Fr 65cm (82349598) DOC .035 wire Romance Medical 1 X90334 379876 563393 5 (D46124) Micropuncture VSI VASCULAR 1 7266V 294731 840607 5 VSI 4FR kit SOLUTIONS SHEATH 5FR Terumo 1 LLA941 840012 339741 369752 5 [place] (KDB249) TUBING [facility] 1 IAI814A 994324 684359 163724 5 Contrast Injection High Pressure (UVT411Y) CARDOSO 260 Cook Medical 1 T18070 602119 48130 086024 5 wire (P97304) AMPLATZ Super [place] 1 [id number] 195279 588698 203573 5 [id number] Stiff 75cm Scientific wire ([id number]) GLIDE Terumo 1 CG507 899345 985907 5 CATHETER 5FR ANGLED 65cm (CG507) MAGIC TORQUE [place] 1 [id number] 565178 885088 735714 1 180cm 0.035 Scientific wire ([id number]) EXOSEAL 5Fr Cardinal 1 EX500 204706 861713 418394 10 [id number] (EX500) Health Signature Audit [place] Stage Time Signature Unsigned Intra-Procedure 10/28/2018 James 12:03:38 PM Saulo RT (R) (CV) Signatures Monitor : James Signature : Saulo RT Date : Time : [address] [place] [address]
[2018-10-28 08:17] LABS: ANION GAP 17.2 mmol/L (8-16); BASOPHILS 0.7 % (0-2); CALCIUM 9.4 mg/dL (8.5-10.1); CREATININE - SERUM 7.3 mg/dL (0.6-1.3); EOSINOPHILS 3.7 % (0-7); HEMATOCRIT 34.2 % (42.0-54.0); HEMOGLOBIN 10.6 g/dL (13.5-17.5); LYMPHOCYTES 17.1 % (15-50); MCH 35.1 pg (26.0-34.0); MCV 113.2 fL (80.0-100.0); MEAN PLATELET VOLUME 10.4 fL (7.4-10.4); MONOCYTES 8.4 % (2-11); NEUTROPHILS 70.1 % (40-80); POTASSIUM - SERUM 4.2 mmol/L (3.5-5.1); RBC 3.02 10x6/uL (4.20-6.10); RDW 14.7 % (11.5-14.5)
[2018-10-28 08:22] LABS: PLATELET COUNT 125 10x3/uL (130-400)
[2018-10-28 08:25] LABS: APTT 36.8 SECONDS (22.8-39.4); INR 1.27 (0.85-1.17); PROTIME 15.3 SECONDS (11.6-15.0)
[2018-10-28 09:09] VITALS: Ht 170.2 cm; Wt 90.9 kg
--- NOTE | 2018-10-28 11:58 | NUR ---
1148 SEE POST PROCEDURE CHECKLIST FOR VITAL SIGN TRENDS
--- NOTE | 2018-10-28 12:07 | NUR ---
1200 PT WANTS TO GET UP TO HAVE A BM EXPLAINED COULD NOT GET UP, BEDPAN PROVIDED.
== END 2018-10-28 16:30 | disposition home or self-care (01) ==
LOC: D.SP 07:37 → D.RAD 10:00 → D.SP 10:00
PROVIDERS: ATTEND General Practice
DX: I70.213 Atherosclerosis of native arteries of extremities with intermittent claudication, bilateral legs (principal); R93.1 Abnormal findings on diagnostic imaging of heart and coronary circulation; T88.8XXA Other specified complications of surgical and medical care, not elsewhere classified, initial encounter; R11.2 Nausea with vomiting, unspecified; Z01.812 Encounter for preprocedural laboratory examination

== ENCOUNTER 2019-01-05 11:04 | Inpatient (IN) | payer MEDICARE ==
[~2019-01-05] VITALS: Ht 170.2 cm; Wt 73.2 kg
--- NOTE | ~2019-01-05 | HEMODYNAMI ---
PATIENT:HAILE CABEZAS MEDICAL RECORD: [id number] : 51 LOCATION:[facility] D.[facility] ADMISSION DATE: 01/05/19 Generatedon:01/08/201918:52 Patient name: HAILE CABEZAS Patient #: [id number] SSN: : 1955 Date of study: 01/08/2019 Page: Of Hemodynamic Procedure Report Patient Data Patient Demographics Procedure consent was obtained First Name: HAILE Gender: Male Last Name: JOCELYNN : 1955 [facility] Initial: YUDITH Age: 63 year(s) Patient #: [id number] Race: Unknown Additional ID: [id number] Contact details Address: [address] [place] [address] State: [place] City: [place] Zip code: [address] Past Medical History Allergies Allergen Reaction Date Comments Reported Other 05/20/2018 corticosteroids, allergy Erythromycin base, morphine, PCN, Sulfa Other 09/11/2018 on chart allergy Other 10/28/2018 CORTICO allergy STEROIDS,ERYTHROMICIN ,MORPHINE,PCN,LIDOCAINE AND BENADRYL Admission Admission Data Admission Date: 01/05/2019 Admission Time: 14:30 Room #: [facility] Procedure Procedure Types Cath Procedure Peripheral Cath Diagnostic Procedure Abd/Extremity Extremities Bilat Lower Extremity Procedure Description Procedure Date Procedure Date: 01/08/2019 Procedure Start Time: 17:09 Procedure Staff Name Function Prakash Nevarez MD Performing Physician James Vernon RT Monitor MARKY BAUGH RT Scrub Brooke Evans RN Nurse Todd Dobbins CRNA Additional personnel Procedure Data Cath Procedure Fluoroscopy Diagnostic fluoroscopy Total fluoroscopy Time: 3.9 time: 3.9 min min Contrast Material Contrast Material Type Amount (ml) Isovue 300 30 Entry Location Entry Primary Successful Side Size Upsize 1 Upsize Entry Closure Bond ccessful Closure Location (Fr) (Fr) 2 (Fr) Remarks Device Remarks Femoral Left 5 Fr 6 Fr artery Mid-Length Diagnostic catheters Device Type Used For End Catheter Placement DIAGNOSTIC IMT 5Fr Catheter ([id number]) Procedure Medications Medication Administration Route Dosage Heparin Flush Bag added to field 3 bags (1000units/500ml NS) Hemodynamics Rest Heart Rate: 80 (bpm) Snapshots Pre Cath Intra NCS Post Cath Vital Signs Time Heart Resp SPO2 etCO2 NIBP (mmHg) Rhythm Pain Sedation Rate (ipm) (%) (mmHg) Status Level (bpm) 17:04:39 71 18 97 9.7 Measuring NSR 0 (11) 10(A) , No pain 17:05:57 84 16 97 8.9 71/47(60) NSR 0 (11) 10(A) , No pain 17:10:55 78 8 92 0 Measuring NSR 0 (11) 10(A) , No pain 17:11:14 77 7 83 0 Disturbed NSR 0 (11) 10(A) , No pain 17:15:55 76 5 98 13.4 Time NSR 0 (11) 10(A) Exceeded , No pain 17:17:49 76 4 99 11.2 96/29(52) NSR 0 (11) 10(A) , No pain 17:21:53 75 4 99 15.6 99/29(60) NSR 0 (11) 10(A) , No pain 17:25:59 74 4 98 14.2 99/33(57) NSR 0 (11) 10(A) , No pain 17:30:58 60 88 0 Measuring NSR 0 (11) 10(A) , No pain 17:32:14 64 83 0 Disturbed NSR 0 (11) 10(A) , No pain 17:35:49 37 72 0 Time NSR 0 (11) 10(A) Exceeded , No pain 17:40:48 74 3 69 0 Measuring NSR 0 (11) 10(A) , No pain 17:41:53 81 21 64 0 Disturbed NSR 0 (11) 10(A) , No pain 17:45:41 60 0 Time NSR 0 (11) 10(A) Exceeded , No pain 17:50:40 78 58 75 0 Measuring NSR 0 (11) 10(A) , No pain 17:51:23 87 48 89 0 177/64(142) NSR 0 (11) 10(A) , No pain 17:56:22 95 15 78 0 Measuring NSR 0 (11) 10(A) , No pain 17:57:01 101 20 65 0 Time NSR 0 (11) 10(A) Exceeded , No pain 18:02:00 112 18 83 0 Measuring NSR 0 (11) 10(A) , No pain 18:03:05 114 18 0 182/157(170) NSR 0 (11) 10(A) , No pain 18:07:05 0 No Cuff NSR 0 (11) 10(A) , No pain 18:11:05 0 No Cuff NSR 0 (11) 10(A) , No pain 18:15:04 0 No Cuff NSR 0 (11) 10(A) , No pain 18:15:26 0 Aborted NSR 0 (11) 10(A) , No pain 18:19:26 0 No Cuff NSR 0 (11) 10(A) , No pain 18:23:26 0 No Cuff NSR 0 (11) 10(A) , No pain 18:27:25 0 No Cuff NSR 0 (11) 10(A) , No pain 18:31:25 0 No Cuff NSR 0 (11) 10(A) , No pain 18:35:25 0 No Cuff NSR 0 (11) 10(A) , No pain 18:39:24 0 No Cuff NSR 0 (11) 10(A) , No pain 18:43:24 0 No Cuff NSR 0 (11) 10(A) , No pain 18:47:24 0 No Cuff NSR 0 (11) 10(A) , No pain 18:51:23 0 No Cuff NSR 0 (11) 10(A) , No pain Medications Time Medication Route Dose Verified Delivered Reason Notes Effec tiveness by by 17:11:22 Heparin Flush added 3 Prakash Randall used for Bag to bags Roque Nevarez MD procedure (1000units/500ml field NS) Procedure Log Time Note 16:44:03 James Veronn RT (R) (CV) sent for patient. Start room use. 16:44:11 Time tracking: Regular hours (M-F 7:00 - 5:00) 16:44:36 Todd Dobbins CRNA present and monitoring patient for TIVA. 16:44:59 Plan of Care:Hemodynamics will remain stable., Cardiac rhythm will remain stable., Comfort level will be maintained., Respiratory function will remain adequate., Patient/ family verbilizes understanding of procedure., Procedure tolerated without complication., Recovers from procedure without complications.. 16:45:20 Patient received from Med II to IR Alert and oriented. Tansferred to table in Supine position. 16:45:22 Correct patient and procedure confirmed by team. 16:45:25 Signed procedure consent form obtained from patient. 16:45:26 ECG and BP/O2 sat monitors applied to patient. 16:45:27 Full Disclosure recording started 16:45:28 - 16:45:32 H&P Date Dictated: 01/08/2019 Within 30 days and on chart.. 16:45:34 - 16:45:40 Use device set IR Diagnostic 16:45:42 ACIST Syringe (47678) opened to sterile field. 16:45:42 ACIST Hand Control (84872) opened to sterile field. 16:45:43 ACIST Manifold (44556) opened to sterile field. 16:45:43 Bag Decanter () opened to sterile field. 16:45:44 Sterile Angiographic Pack opened to sterile field. 16:45:45 Tegaderm 4 x 4 (1626W) opened to sterile field. 16:45:49 - 16:46:12 SEE ANESTHESIA NOTE FOR PRE PROCEDURE ANESTHESIA 16:46:14 Pre-procedure instructions explained to patient. 16:46:15 Pre-op teaching completed and patient verbalized understanding. 16:46:27 Left groin area was prepped with chlora-prep and draped in sterile fashion 17:02:49 Vital chart was started 17:03:36 Procedure ended.(Physican Out) 17:05:47 Alarms reviewed by R. N. 17:05:48 Sharps counted by scrub and verified by R.N. 17:08:05 Physician arrived 17:08:06 --------ALL STOP TIME OUT------ 17:08:07 Final Timeout: patient, procedure, and site verified with staff and physician. All members of the team are in agreement. 17:08:11 Left groin site verified by team. 17:08:19 Right PEDAL site verified by team. 17:08:57 Maximum allowable Isovue 300 dose DIALYSISml. Physician notified. (300m l for normal creatinines. For patients with creatinine of 1.7 or higher multiply weight(kg) x 5 divided by creatinine.) 17:09:01 Fire Safety Assessment: A--An alcohol-based skin anteseptic being used preoperatively., C--Open oxygen or nitrous oxide is being used. 17:09:11 Sedation plan: IV Moderate Sedation Medication:Propofol 17:09:36 Baseline sample Acquired. 17:09:50 Procedure started. 17:09:58 Local anesthetic to left femerol artery with Lidocaine 1% by Prakash Nevarez MD.INITIAL ACCESS ONLY 17:10:51 Right Pedal was prepped with chlora-prep and draped in sterile fashion. 17:11:22 Heparin Flush Bag (1000units/500ml NS) 3 bags added to field was administered by Prakash Nevarez MD; used for procedure; 17:11:43 Access obtained with 4Fr micropunture. 17:11:55 A 5 Fr sheath was inserted into the Left Femoral artery 17:12:16 Micropuncture VSI 4FR kit opened to sterile field. 17:12:17 SHEATH 5FR [place] (IXB789) opened to sterile field. 17:12:18 TUBING Contrast Injection High Pressure (YIL337Y) opened to sterile field. 17:12:19 [place]SON 145cm wire (F65337) opened to sterile field. 17:16:51 Angiodynamics Omniflush 5Fr 65cm (72071137) opened to sterile field. 17:17:00 CARDOSO 260 wire (C16425) opened to sterile field. 17:24:21 GLIDE WIRE ANGLE 180cm (NQ8384) opened to sterile field. 17:24:27 TORQUE DEVICE PLASTIC .038 ( TD01) opened to sterile field. 17:25:09 SHEATH 6FR [place] (RSR01) opened to sterile field. 17:25:19 Sheath upsized to a 6 Fr Mid-Length. 17:27:25 A DIAGNOSTIC IMT 5Fr Catheter (836322838) was advanced over the wire an d used for . 17:28:02 INFLATOR BasixTOUCH (SS6272) opened to sterile field. 17:30:52 Procedure ended. 17:33:27 Zero performed for pressure channel P1 17:33:29 Zero performed for pressure channel P1 17:33:33 Zero performed for pressure channel P1 17:35:03 PT INTUBATED PRESSURE DROPPED ICU NOTIFIED 17:38:29 Zero performed for pressure channel P1 17:38:34 Zero performed for pressure channel P1 17:41:15 Zero performed for pressure channel P1 17:42:03 Contrast amount:Isovue 300 30ml. 17:42:47 Fluoroscopy time 03.90 minutes. 17:44:08 Sharps counted by scrub and verified by R.N. 17:44:16 Insertion/operative site no bleeding no hematoma. 17:44:51 SHEATH SUTURED IN WITH 2.0 ETHILON 17:45:03 SUTURE ETHILON 2-0 BLK MONO FS opened to sterile field. 17:48:22 FLURO DOSE 159 MGY 17:48:58 Post-op/insertion site Left Femoral artery dressed using a 4 x 4 and Tegaderm. 17:49:23 Post left femerol artery:stable 17:49:25 Post Procedure Pulses reassessed and unchanged 17:49:55 Procedure and supply charges have been captured, reviewed, submitted an d are correct. 17:50:24 Report given to ICU. 17:50:28 Patient transfered to ICU with Bed. 17:50:51 SEE ANESTHESIA NOTE FOR POST PROCEDURE ANESTHESIA 18:52:44 Vital chart was stopped Device Usage Item Name Manufacture Quantity Catalog Number Hospital Part Current [facility] Lot# / Charge Number Stock Stock Serial# Code ACIST Syringe Acist Medical 1 08443 280396 577595 012378 20 (97342) Systems Inc ACIST Hand Acist Medical 1 79540 668922 885090 214055 5 Control Systems Inc (78235) ACIST Acist Medical 1 49973 706589 289424 376827 5 Manifold Systems Inc (99347) Bag Decanter Microtek 1 2001S 717249 80528 698551 5 (2001S) Medical Inc. Sterile Cardinal 1 [id number] 495328 534101 5 Angiographic Health Pack Tegaderm 4 x 3M 1 1626W 525068 000513 578555 5 4 (1626W) Micropuncture VSI VASCULAR 1 7266V 427491 635747 5 VSI 4FR kit SOLUTIONS SHEATH 5FR Terumo 1 NCO560 423977 442574 523000 5 [place] (MCU672) TUBING [facility] 1 [id number] 196214 957947 046786 5 Contrast Injection High Pressure (TTQ882R) BENTSON 145cm Cook Medical 1 I24973 619667 246526 5 wire (N21258) Angiodynamics Angiodynamics 1 67609984 876531 226199 729737 5 Omniflush 5Fr 65cm (81771380) CARDOSO 260 [employer] 1 Y35740 909728 74811 018946 5 wire (N62390) GLIDE WIRE Terumo 1 DL9159 860050 421620 814513 5 ANGLE 180cm (FQ0966) TORQUE DEVICE [place] 1 TD01 330097 376726 854028 5 PLASTIC .038 Scientific ( TD01) SHEATH 6FR Terumo 1 RSR01 233058 01436 308612 5 Destination (RSR01) DIAGNOSTIC [place] 1 [id number] 912764 132082 94325 5 37993750 IMT 5Fr Scientific Catheter (380164372) INFLATOR [facility] 1 LE9832 834213 296585 659540 5 BasixTOUCH (QE9967) SUTURE Ethicon 1 664H 489853 209813 5 ETHILON 2-0 BLK MONO FS Signature Audit [place] Stage Time Signature Unsigned Intra-Procedure 01/08/2019 James 6:52:40 PM Shuffield RT (R) (CV) Signatures Monitor : James Signature : [place] RT Date : Time : [address] [place] [address]
--- NOTE | ~2019-01-05 | OP ---
PATIENT NAME: HAILE CABEZAS MEDICAL RECORD: [id number] :51 LOCATION:.[facility] D.2307 ADMISSION DATE:01/05/19 SURGEON: FINA YUNG MD DATE OF OPERATION: 01/08/2019 PREOPERATIVE DIAGNOSES: 1. Need for IV access. 2. Respiratory failure on the ventilator. 3. End-stage renal disease. 4. Diabetes mellitus. POSTOPERATIVE DIAGNOSES: 1. Need for IV access. 2. Respiratory failure on the ventilator. 3. End-stage renal disease. 4. Diabetes mellitus. PROCEDURE: Left IJ triple-lumen central venous line placement. SURGEON: Fina Yung MD REPORT OF PROCEDURE: The patient's left neck was prepped and draped in sterile fashion. Using ultrasound guidance, a needle was used to cannulate the left internal jugular vein. The guidewire was advanced with ease. Over this wire, a dilator was placed followed by the triple-lumen catheter. The catheter aspirated nonpulsatile dark blood and flushed easily in all 3 ports. This was sutured into place with 3-0 nylons and dressed appropriately. COMPLICATIONS: None. CONDITION: Stable. ANESTHESIA: General endotracheal. BLOOD LOSS: Minimal. Procedure done in the ICU at the bedside. TRANSINT:[id number] Voice Confirmation ID: [id number] DOCUMENT ID: [id number] FINA YUNG MD CC: [id number] DICTATION DATE: 01/08/192112 HOUSE REPAIRER: 01/08/192158 ADM IN [facility] [address] [place] [address]
[~2019-01-05 11:04] MED LIST changes: -NOVOLIN 70/30 110 ML; +NOVOLIN 70/30 110 ML SC
[2019-01-05 11:43] LABS: BASOPHILS 0.2 % (0-2); EOSINOPHILS 1.9 % (0-7); HEMATOCRIT 33.6 % (42.0-54.0); HEMOGLOBIN 10.5 g/dL (13.5-17.5); IMMATURE GRANULOCYTES 0.2 % (0-5); LYMPHOCYTES 5.9 % (15-50); MCH 32.9 pg (26.0-34.0); MCHC 31.3 g/dL (31.0-37.0); MCV 105.3 fL (80.0-100.0); MEAN PLATELET VOLUME 11.4 fL (7.4-10.4); MONOCYTES 10.2 % (2-11); NEUTROPHILS 81.6 % (40-80); PLATELET COUNT 139 10x3/uL (130-400); RBC 3.19 10x6/uL (4.20-6.10); RDW 15.7 % (11.5-14.5); WBC 8.3 10x3/uL (4.8-10.8)
[2019-01-05 11:53] LABS: ALBUMIN 2.8 g/dL (3.4-5.0); BILIRUBIN - TOTAL 0.69 mg/dL (0.2-1.3); CARBON DIOXIDE 25.4 mmol/L (21.0-32.0); CREATININE - SERUM 11.7 mg/dL (0.6-1.3); POTASSIUM - SERUM 5.4 mmol/L (3.5-5.1)
[2019-01-05 13:10] VITALS: BP 99/68
[2019-01-05 13:30] VITALS: BP 104/61
[2019-01-05 14:30] VITALS: BP 112/51
[2019-01-05 14:35] LABS: APPEARANCE CLEAR (CLEAR); BILIRUBIN 2+ (NEGATIVE); COLOR YELLOW (YELLOW); GLUCOSE NEGATIVE (NEGATIVE); KETONE NEGATIVE (NEGATIVE); NITRITE NEGATIVE (NEGATIVE); PROTEIN 1+ mg/dL (NEGATIVE); UROBILINOGEN NORMAL (NORMAL)
[2019-01-05 14:38] LABS: RED CELLS - URINE OCC /hpf (0-5); WHITE CELLS - URINE 0-5 /hpf (0-5)
[2019-01-05 14:40] LABS: BACTERIA FEW /hpf (NONE SEEN); EPITHELIAL CELLS 0-5 /hpf (0-5)
--- NOTE | 2019-01-05 16:13 | NUR ---
REPORT TO ZOFIA AT THIS TIME.
[2019-01-05 16:43] VITALS: BP 94/49
[2019-01-05 16:54] VITALS: BP 94/49; BMI 32.2
--- NOTE | 2019-01-05 19:13 | NUR ---
RESUMING PATIENT CARE. PATIENT RESTING COMFORTABLY IN BED. RESPIRATIONS ARE EVEN AND UNLABORED. NO S/S OF DISTRESS. NO C/O PAIN. DENIES NEEDS. CALL LIGHT WITHIN REACH. WILL CPOC.
[2019-01-05 20:18] VITALS: BP 96/54
[2019-01-06 00:32] VITALS: BP 109/61
--- NOTE | 2019-01-06 02:30 | NUR ---
PATIENT'S IV RESTARTED, 20 GAUGE TO THE RIGHT HAND.
[2019-01-06 04:09] VITALS: BP 104/56
--- NOTE | 2019-01-06 04:28 | NUR ---
PATIENT PULLED IV OUT. SAID HE DID IT ON PURPOSE, BECAUSE HE WANTS TO LEAVE.
--- NOTE | 2019-01-06 04:57 | NUR ---
RESTARTED IV WITH 20 RENNY TO RT FOREARM BELOW AC X1 STICK AND SECURED WITH OPSITE AND TAPE
[2019-01-06 06:20] LABS: BASOPHILS 0.2 % (0-2); EOSINOPHILS 1.1 % (0-7); HEMATOCRIT 31.4 % (42.0-54.0); IMMATURE GRANULOCYTES 0.2 % (0-5); LYMPHOCYTES 7.5 % (15-50); MCH 33.1 pg (26.0-34.0); MCHC 31.8 g/dL (31.0-37.0); MEAN PLATELET VOLUME 11.9 fL (7.4-10.4); MONOCYTES 10.2 % (2-11); NEUTROPHILS 80.8 % (40-80); PLATELET COUNT 132 10x3/uL (130-400); RBC 3.02 10x6/uL (4.20-6.10); RDW 15.6 % (11.5-14.5); WBC 8.1 10x3/uL (4.8-10.8)
[2019-01-06 06:38] LABS: INR 1.39 (0.85-1.17); PROTIME 16.5 SECONDS (11.6-15.0)
[2019-01-06 06:53] LABS: ANION GAP 20.2 mmol/L (8-16); CALCIUM 9.1 mg/dL (8.5-10.1); CARBON DIOXIDE 24.1 mmol/L (21.0-32.0); CREATININE - SERUM 13.1 mg/dL (0.6-1.3); POTASSIUM - SERUM 5.3 mmol/L (3.5-5.1)
[2019-01-06 09:16] VITALS: BP 93/45
--- NOTE | 2019-01-06 09:30 | NUR ---
REFUSES PT AT THIS TIME.
--- NOTE | 2019-01-06 10:00 | NUR ---
LEAVING FOR CT BY BED. WILL CONT. PLAN OF CARE.
--- NOTE | 2019-01-06 10:56 | NUR ---
HEBER CANCELLED FOR TODAY. DIET RESUMED. LEAVING FOR FUNERAL LIMOUSINE DRIVER BY BED.
--- NOTE | 2019-01-06 10:58 | NUR ---
AFRO CANCELLED. DIET RESUMED. LEAVING FOR DIALYSIS BY BED. WILL CONT. PLAN OF CARE.
[2019-01-06 13:09] VITALS: BMI 32.8
--- NOTE | 2019-01-06 14:43 | NUR ---
PT TX COMPLETE. 2L FLUID OFF. PT STILL HAVING SLIGHT CONFUSION. VSS. NO COMPLAINTS. REPORT CALLED TO Carmen JEFFERS RN.
--- NOTE | 2019-01-06 14:58 | NUR ---
BACK FROM DIALYSIS. B/P 108/53.
--- NOTE | 2019-01-06 15:09 | NUR ---
WOUND CARE NURSE AT EVALUATING FOOT WOUNDS.
--- NOTE | 2019-01-06 15:31 | NUR ---
Wound care consult due to diabetic sores on feet. There are no open wounds noted except healing areas on bilateral great toes from ingrown nail removal. Feet and lower legs are discolored purple/mottled and cold to the touch. Small crack noted on right heel due to dryness. Feet and lower legs are very sensitive to the touch and "burn". Bridged/floated heels prior to leaving room. Wound care will continue monitoring.
[2019-01-06 17:01] VITALS: BP 95/51
--- NOTE | 2019-01-06 17:44 | NUR ---
CONSENTS SIGNED FOR AFRO.
--- NOTE | 2019-01-06 19:57 | NUR ---
RESUMING PATIENT CARE. PATIENT IS ALERT AND ORIENTED. RESTING COMFORTABLY IN BED. RESPIRATIONS ARE EVEN AND UNLABORED. NO S/S OF DISTRESS. NO C/O PAIN. DENIES NEEDS. CALL LIGHT WITHIN REACH, WILL CPOC.
[2019-01-06 20:00] VITALS: BP 111/54
--- NOTE | 2019-01-06 21:10 | NUR ---
PATIENT WANTED THE PATIENT HS MEDICATION HELD.
[2019-01-07 00:40] VITALS: BP 103/54
--- NOTE | 2019-01-07 01:47 | NUR ---
CALLED TO PATIENT ROOM BY VISITOR. SHE STATED THAT HE WAS BLEEDING ALOT. WENT TO ASSESS PATIENT AND HE HAD A LARGE AMOUNT OF BLEEDING FROM HIS IV SITE THAT HE PULLED OUT. BLEEDING STOPPED. PATIENT CLEANED AND LINENS CHANGED. BP 94/56 R 18 HR 89. NO S/S OF DISTRESS. NO C/O PAIN. PATIENT ALERT. CALL LIGHT WITHIN REACH
[2019-01-07 01:56] LABS: BASOPHILS 0.2 % (0-2); EOSINOPHILS 0.2 % (0-7); HEMATOCRIT 31.9 % (42.0-54.0); IMMATURE GRANULOCYTES 0.2 % (0-5); LYMPHOCYTES 4.7 % (15-50); MCH 32.6 pg (26.0-34.0); MCHC 31.3 g/dL (31.0-37.0); MCV 103.9 fL (80.0-100.0); MEAN PLATELET VOLUME 11.7 fL (7.4-10.4); NEUTROPHILS 82.7 % (40-80); PLATELET COUNT 141 10x3/uL (130-400); RBC 3.07 10x6/uL (4.20-6.10); RDW 15.8 % (11.5-14.5); WBC 8.6 10x3/uL (4.8-10.8)
--- NOTE | 2019-01-07 01:56 | NUR ---
20G PLACED IN RIGHT AC.
--- NOTE | 2019-01-07 02:02 | NUR ---
PATIENT BECAME INCREASINGLY CONFUSED. ANGRY IN THE BEGINNING OF THIS SHIFT THAT HE KLONIPIN AND GABAPENTIN HAD BEEN DISCONTINUED. WHEN I WAS IN ROOM DOING MY ASSESSMENT. I NOTICED THAT THERE WERE TWO GENEIC MEDICATION HOLDERS ON THE SINK. THE STATED THAT THE MEDICATION WAS HERS. BECAUSE ON THE PATIENTS INCREASED COMFUSION, I AM CONCERNED THAT THE MY BE GIVING HIM MEDICATION.
[2019-01-07 02:03] LABS: INR 1.49 (0.85-1.17); PROTIME 17.5 SECONDS (11.6-15.0)
--- NOTE | 2019-01-07 04:50 | NUR ---
CALLED INTO PATIENT ROOM BY . PATIENT ASKED IF THE ROOM SMELT LIKE AMMONIA. WHICH THE ROOM DID NOT. PATIENT DETERMINED THAT IT THE PATIENTS BREATH AND THAT IS THE REASON WHY HE IS CONFUSED.
[2019-01-07 05:38] VITALS: BP 95/55
[2019-01-07 06:44] LABS: INR 1.49 (0.85-1.17); PROTIME 17.4 SECONDS (11.6-15.0)
[2019-01-07 07:27] LABS: HEPATITIS C ANTIBODY 0.1 S/CO RAT (0.0-0.9)
--- NOTE | 2019-01-07 07:56 | NUR ---
ROUNDING DONE WITH PATIENT BEING INCONT. OF URINE. ON HEART MONITOR SHOWING SR, HR 89. RESE. LEFT ARM WITH AVF, + BRUIT AND THRILL. RIGHT AC PIV SEEN WITH HEPARIN DRIP INFUSING AT 10 CC/HR. STOCKINGNETTE IS SEEN OVER IV SITE. ORANGE SWAB CAPS IN USE. PATIENT IS NPO FOR AFRO PROCEDURE TODAY. IS AT BEDSIDE. PATIENT WAS ON ROOM AIR, SAT 85 %. PLACED ON 4L PER NC, SAT UP TO 96%. PATIENT IS A MOUTH BREATHER. BILATERAL LOWER LEGS ARE DISCOLORED, TOES ARE STARTING TO BE SLIGHTLY DARKER ALMOST BLACK.
[2019-01-07 08:00] VITALS: BP 155/35
--- NOTE | 2019-01-07 08:44 | NUR ---
I CALLED SHANA IN PHARMACY TO SEE IF I GIVE THE NESACAINE (IT'S A BLOCK). HE SAID NO AND WILL BRING UP TO BE SENT WITH PATIENT.
[2019-01-07 11:00] VITALS: BP 104/54
--- NOTE | 2019-01-07 12:50 | NUR ---
STILL NPO AT THIS TIME FOR AFRO PROCEDURE.
--- NOTE | 2019-01-07 14:43 | NUR ---
CHECKED ON PATIENT FOR INCONT. OF URINE OR BOWEL, DRY. PATIENT HAS HIS OXYGEN OFF AGAIN AT THIS TIME. AND DAUGHTER PRESENT IN ROOM AT THIS TIME. PLACED BACK ON OXYGEN WITH LEVEL OF 90 % ON ROOM AIR. UP TO 95% NOW. WILL CONTINUE TO MONITOR AND ASSESS OFTEN.
--- NOTE | 2019-01-07 15:48 | NUR ---
NESACAINE VIAL GIVEN TO MERARI WHITE IN IR. PROCEDURE HAS BEEN CANCELLED FOR TODAY AND RESCHEDULED FOR TOMORROW. MERARI ASKED THAT DIALYSIS BE DONE FIRST THING IN AM. I CALLED TAMEKA IN DIALYSIS AND TOLD HER THIS. SHE SAID THAT SHE WILL PASS ALONG THAT THIS BE DONE FIRST THING IN AM.
[2019-01-07 16:16] VITALS: BP 96/59
--- NOTE | 2019-01-07 16:37 | NUR ---
DAUGHTER AND TO HAVE MULTIPLE QUESTIONS AND CONCERNS FOR DR HYATT AND MY SELF. THEY ARE VERY ANGRY THAT NO ANSWERS HAVE BEEN GIVEN TO THEM WHY SOME MEDS WEHRE STOPPED, ETC. (AZIZA AND DALJIT). DR HYATT ANSWERED QUESTIONS AND SPENT APPROX. 20-30 MIN IN ROOM WITH THEM AND MYSELF. I CALLED MERARI IN IR AND WAS GIVEN THE ORDER FOR PATIENT TO EAT.
--- NOTE | 2019-01-07 17:04 | NUR ---
BARBARA WITH LAB TO RUN PTT SO THAT WE CAN MAKE THE FLOWSHEET PER PROTOCOL. GANGA SPARKS RN UNIT MANAGER IN ROOM AT THIS TIME TALKING TO AND DAUGHTER.
--- NOTE | 2019-01-07 17:28 | NUR ---
GANGA SPARKS RN STAYING IN ROOM WHILE GOES TO GET SOMETHING TO EAT.
--- NOTE | 2019-01-07 17:32 | NUR ---
BACK IN ROOM AT THIS TIME.
--- NOTE | 2019-01-07 19:05 | NUR ---
BEDSIDE REPORT RECEIVED. AT BEDSIDE. HEPARIN INFUSING AT 11 ORDERED. PT IS ALERT BUT CONFUSED. BEDALARM ON AND ACTIVE. PT HAS NO S/S OF DISTRESS. BEDLOW AND CALL LIGHT IN REACH. NAME AND DATE PLACED ON BOARD. WILL CPOC
[2019-01-07 20:00] VITALS: BP 97/50
--- NOTE | 2019-01-07 20:57 | NUR ---
PT GAVE PT A BED BATH. NURSE CLEANED BED AND FINISHED CLEANING PT. PT BEDLOW AND CALL LIGHT IN REACH. PT WILL CALL FOR ASSIST WHEN NEEDED.WILL CPOC
--- NOTE | 2019-01-07 21:48 | NUR ---
CAME IN TO GIVE PT MEDICATIONS. PT ASLEEP. AROUSES TO NURSE TOUCHING AND TALKING. PT KEEPS EYES CLOSED. CHECKED FSBS IT IS 205 DOESNT WANT TO GIVE LANTUS AND RISK HIM BECOMING HYPOGLYCEMIC DURING SURG. ALSO DOESNT WANT TO GIVE ENTRESTO BECAUSE PT HAS NOT HAD IT SINCE SATURDAY AND WITH HIS SURG TOMORROW SHE DOESNT WANT TO MESS ANY THING UP. WILL PRINT AN EDUCATION PACKET ON ENTRESTO. PT S1S2 NOTED RRR, UPPER LOBES CLEAR LOWER DIMINISHED. PT WOULD NOT TAKE DEEP BREATH. LEFT AVF BRUIT AND THRILL NOTED. FEET RED AND TENDER. RIGHT MORE PAINFUL THAN LEFT. PT BEDLOW AND CALL LIGHT IN REACH. ALARM ON AND ACTIVE. HEPARIN INFUSING AT 11 ORDERED. REDRAW IS AT 0000 WILL CPOC
--- NOTE | 2019-01-07 21:50 | NUR ---
LET PT WALK TO VENDING MACHINE WHILE NURSE ASSESSING AND CHARTING MED REFUSAL. PT AROUSED ONCE WHILE GONE. ASKED HOW HE WAS AND HE STATED "I FEEL LIKE SHIT, DONT BE MAD YOU WANTED THE TRUTH DIDNT YOU" I SPOKE WITH HIM AND ASKED WHAT I COULD DO TO MAKE HIM FEEL BETTER HE STATED "I REAKON NOTHING AND WENT BACK TO BED" BACK TO ROOM 2203
[2019-01-08] VITALS (26 sets, daily range): BP systolic 67–150; BP diastolic 25–75; Ht 170.2 cm; Wt 73.2 kg
--- NOTE | 2019-01-08 00:50 | NUR ---
PT HAD A SMALL BM CLEANED PT AND PLACED NEW PADS. PT ABLE TO TELL NURSE CORRECT TIME. PT DENIES ANY NEEDS. ASSISTED WITH REPOSITIONING. AT BEDSIDE. WILL CPOC
--- NOTE | 2019-01-08 02:34 | NUR ---
CALLED LAB REGARDING APTT NOT RESULTING. LAB STATES MACHINE IS BROKE. CANDY STARCH MOLD PRINTER TOOK TO [facility] TO GET RESULTS.
--- NOTE | 2019-01-08 03:41 | NUR ---
APTT RESULT BACK FROM LAB. 40.8 FOLLOWED PROTOCOL AND INCREASED BY 100 UNITS/HR. ADJUSTED RATE IS 12ML/HR . WILL REDRAW IN 6 HOURS.
--- NOTE | 2019-01-08 04:39 | NUR ---
PT WOKE UP THINKING HE WAS IN HIS BOAT. ATTEMPTED TO PULL OUT IV. CHANGED DRSG AND PLACED A SLEEVE FOR PROTECTION. HEPARIN INFUSING AT 12 ORDERED. AT BEDSIDE. WILL CPOC
[2019-01-08 05:56] LABS: ANION GAP 19.1 mmol/L (8-16); CALCIUM 9.3 mg/dL (8.5-10.1); CARBON DIOXIDE 27.1 mmol/L (21.0-32.0); CREATININE - SERUM 11.8 mg/dL (0.6-1.3); POTASSIUM - SERUM 5.2 mmol/L (3.5-5.1); VANCOMYCIN - RANDOM 11.8 ug/mL (10.0-20.0)
[2019-01-08 06:22] LABS: BASOPHILS 0.1 % (0-2); EOSINOPHILS 0.7 % (0-7); HEMATOCRIT 31.1 % (42.0-54.0); HEMOGLOBIN 9.7 g/dL (13.5-17.5); IMMATURE GRANULOCYTES 0.2 % (0-5); LYMPHOCYTES 5.9 % (15-50); MCH 32.3 pg (26.0-34.0); MCHC 31.2 g/dL (31.0-37.0); MCV 103.7 fL (80.0-100.0); MEAN PLATELET VOLUME 11.4 fL (7.4-10.4); MONOCYTES 8.5 % (2-11); NEUTROPHILS 84.6 % (40-80); PLATELET COUNT 132 10x3/uL (130-400); RDW 15.8 % (11.5-14.5); WBC 8.3 10x3/uL (4.8-10.8)
--- NOTE | 2019-01-08 07:30 | NUR ---
RECEIVED PT IN BED AWAKE CONFUSED TO SITUATION RESP UNLABORED SKIN W/D LT ARM AVF NOTED WITH +BRUIT + THRILL C/O PAIN TO FEET RLE 3/10 BLIATERAL FEET RED AND DISCOLORED BILATERAL PULSES WEAK WILL CONTINUE TO MONITOR
--- NOTE | 2019-01-08 12:35 | NUR ---
RECEIVED PT BACK FROM DIALYSIS VIA BED AROUSES EASILY TO VERBAL STIMULI RESP UNLABORED AT BEDSIDE
--- NOTE | 2019-01-08 13:27 | MORECARE ---
CASE MANAGEMENT DISCHARGE SUMMARY PATIENT: HAILE CABEZAS UNIT: [id number] ADM DATE: 01/05/19 AGE: 63 : 51 SEX: M ROOM/BED: D.2119 AUTHOR: WALDO CHAN PHYSICIAN: REFERRING PHYSICIAN: GAIL HYATT MD DATE OF SERVICE: 01/08/19 Discharge Plan Patient Name: HAILE CABEZAS [facility] [facility] 1955 Planned Disposition: Home Anticipated Discharge Date: Discharge Date: Expected LOS: Initial Reviewer: [email or web address] Initial Review Date: 01/05/2019 Generated: 01/08/19 2:27 pm DCPIA - Discharge Planning Initial Assessment Updated by [email or web address]: Alejandro Bruce on 01/08/19 1:25 pm * Is the patient Alert and Oriented? Yes * How many steps to enter\exit or inside your home? * PCP DR. JAZZ LEAL * Pharmacy [facility] * Preadmission Environment Home with Family * ADLs Independent * Equipment Wheelchair * Other Equipment [facility]- MED[facility] EQUIPMENT PROVIDER * List name and contact numbers for known caregivers / representatives who currently or will assist patient after discharge: VÍCTOR CABEZAS, SPOUSE, * Verbal permission to speak to the caregivers and representatives has been obtained from the patient. Yes * Community resources currently utilized Other * Please name any agencies selected above. [facility], [facility], MWF, 1000, [employer] * Additional services required to return to the preadmission environment? No * Can the patient safely return to the preadmission environment? Yes * Has this patient been hospitalized within the prior 30 days at any hospital? No Patient Name: HAILE CABEZAS Page [id number] at 1327 All edits/amendments must be made on the electronic document DICTATION DATE: 01/08/197 VOLLEYBALL COACH: SHENA 01/08/197 RPT#: [id number] DC DATE: STATUS: ADM IN [facility] [address] [place] [address] END OF REPORT
--- NOTE | 2019-01-08 13:36 | MORECARE ---
CASE MANAGEMENT DISCHARGE SUMMARY PATIENT: HAILE CABEZAS UNIT: [id number] ADM DATE: 01/05/19 AGE: 63 : 53 SEX: M ROOM/BED: D.3799 AUTHOR: DUSTIN,DOC PHYSICIAN: REFERRING PHYSICIAN: GAIL HYATT MD DATE OF SERVICE: 01/08/19 Discharge Plan Patient Name: HAILE CABEZAS Facility: [facility]:[place] : 1955 Planned Disposition: Home Anticipated Discharge Date: Discharge Date: Expected LOS: Initial Reviewer: [email or web address] Initial Review Date: 01/05/2019 Generated: 01/08/19 2:36 pm Comments DCP- Discharge Planning Updated by [email or web address]: Alejandro Bruce on 01/08/19 12:[address] Patient Name: HAILE CABEZAS Admission Status: ER Accout number: [id number] Admission Date: 01-05-2019 : 1955 Admission Diagnosis:WEAKNESS Attending: GAIL HYATT Current LOS: 3 Anticipated DC Date: Planned Disposition: Home Primary Insurance: MEDICARE A & B Discharge Planning Comments: CM MET WITH PT AND SPOUSE IN ROOM TO DISCUSS DISCHARGE PLANNING AND NEEDS. HAILE CABEZAS provided verbal consent to discuss current and ongoing needs with/in the presence of: SPOUSE, VÍCTOR. PT REPORTS LIVING AT HOME INDEPENDENTLY WITH HIS . PT HAS WHEELCHAIR FROM [facility]. PT HAS NO OUTSIDE SERVICES ASSISTING IN THE HOME. PT GOES TO [facility] MWF, 1000AM, [facility] [employer]. CM DISCUSSED AVAILABILITY OF HOME HEALTH, REHAB SERVICES AND MEDICAL EQUIPMENT. PT DENIES DISCHARGE NEEDS AT THIS TIME. PT'S SPOUSE TO TRANSPORT FOR DISCHARGE HOME. CM PROVIDED CM CONTACT [facility] PHONE NUMBERS FOR ANY NEEDS OR CONCERNS THAT MAY NEED ADDRESSED. PT PLANS TO DISCHARGE HOME WITH SPOUSE, NO ANTICIPATED DISCHARGE NEEDS AT THIS TIME. CM TO FOLLOW AND ASSIST IF NEEDED. Pipe Blanks Cut Off Saw Operator: Alejandro Bruce DCPIA - Discharge Planning Initial Assessment Updated by [id number]: Alejandro Bruce on 01/08/19 1:25 pm * Is the patient Alert and Oriented? Yes * How many steps to enter\exit or inside your home? * PCP DR. JAZZ LEAL * Pharmacy [facility] * Preadmission Environment Home with Family * ADLs Independent * Equipment Wheelchair * Other Equipment [facility]- MEDICAL EQUIPMENT PROVIDER * List name and contact numbers for known caregivers / representatives who currently or will assist patient after discharge: VÍCTOR CABEZAS, SPOUSE, * Verbal permission to speak to the caregivers and representatives has been obtained from the patient. Yes * Community resources currently utilized Other * Please name any agencies selected above. OUTPATIENT DIALYSIS, [facility], MWF, 1000, [employer] [employer] * Additional services required to return to the preadmission environment? No * Can the patient safely return to the preadmission environment? Yes * Has this patient been hospitalized within the prior 30 days at any hospital? No Last DP export: 01/08/19 12:27 pm Patient Name: HAILE CABEZAS Page [phone] at 1336 All edits/amendments must be made on the electronic document DICTATION DATE: 01/08/19 1335 HI LO DRIVER: SHNEA 01/08/19 1335 RPT#: [id number] DC DATE: STATUS: ADM IN [facility] [address] [place] [address] END OF REPORT
--- NOTE | 2019-01-08 14:10 | NUR ---
Nutrition follow-up: Pt NPO PO intake of renal diet has been ~25% of 2 meals. Labs reviewed Wt: 161# +BM Pt has been NPO for several meals during this hospital stay. If po intake remains poor after procedure will need to consider starting nutrition support. RDN following.
--- NOTE | 2019-01-08 16:35 | NUR ---
PT TO ITERVENTIONAL RADIOLOGY VIA BE
--- NOTE | 2019-01-08 18:05 | NUR ---
RECEIVED PATEINT FROM SPECIALS IN RADIOLOGY. ETT SECURE BILATERAL LUNG SOUNDS EQUAL. EDWARD LEFT FEMEROL CONNECTED TO PRESSURE LINE, ZEROED AND FLUSHED GOOD WAVE FORM. RIGHT AC PERIPHERIAL IV INFUSING WITH LEVOPHED AT 30 MCG/MIN. HEART RATE 146 VERY IRREGULAR. BLOOD PRESSURE IN 70'S CUFF AND EDWARD. DR. ARCHER HERE ORDERS FOR VASOPRESSIN RECEIVED. DR. HYATT NOTIFIED OF PATIENT CONDITION. NS INFUSING AT 100 ML HOUR. FEET AND HANDS COLD AND BLUE IN COLOR. SWOOSH FOR A PULSE IN ANKLES PER DOPPLER. DRESSING LEFT GROIN DRY AND INTACT. FAMILY NOTIFIED OF PATIENT CONDITION PER RADIOLOGY STAFF.
--- NOTE | 2019-01-08 18:30 | NUR ---
VASOPRESSIN STARTED BLOOD PRESSURE IMPROVED. HEART RATE INCREASED TO 180'S. WEANED VASOPRESSIN OFF DUE TO HEART RATE. DR. ARCHER HERE. OG INSERTED TO DECOMPRESS STOMACH PER DR. ARCHER ORDERS. ATTEMPTED TO START IV IN RIGHT ARM. SUCTIONED MINIMAL GAG REFLEX. EDWARD WITH GOOD WAVE FORM.
--- NOTE | 2019-01-08 19:00 | NUR ---
DR. HYATT HERE UPDATE GIVEN. ORDERS RECEIVED FOR 500 ML BOLUS NS IV. INSTRUCTED TO WEAN LEVOPHED AND TURN VASOPRESSIN BACK ON. ORDERS RECEIVED TO GIVE BENDARYL AND SOLUMEDROL INCASE PATEINT IS HAVING A REACTION TO DYE. PAGED DR. MEDELLIN. DR. HYATT CONSULT CARDIOLOGY AND TALKED WITH DR. MEDELLIN ABOUT RHYTHM.
--- NOTE | 2019-01-08 19:09 | NUR ---
DR. HYATT NOTIFIED OF PATIENT ALLERGY. STATES THE FAMILY HAVE DENIED MEDROL AND BENADRYL ALLERY TO HIM.
--- NOTE | 2019-01-08 19:15 | NUR ---
DR. MEDELLIN HERE. STATES PATIENT IN ATRIAL FIB. DIGOXIN 0.5 MG IV NOW THEN 0.25MG Q 4 HOURS X 4 FOR HEART RATE. DIGOXIN 0.5 IV GIVEN SLOWLY OVER 3 MIN. HEART RATE DOWN INTO 160'S. DR. HYATT STATES WE CAN GIVE ALBUMIN IF NEEDED FOR BLOOD PRESSURE.
--- NOTE | 2019-01-08 19:25 | NUR ---
BLOOD PRESSURE DOWN INTO 70'S HEART RATE 174. ALBUMIN IV STARTED. VASOPRESSIN AT 0.04 UNITS/MIN. LEVOPHED AT 30 MCG/MIN. 500 ML NS FLUID BOLUS COMPLETED. DR. HYATT HERE TALKED WITH FAMILY.
--- NOTE | 2019-01-08 20:00 | NUR ---
SHIFT ASSESSMENT COMPLETE, DAY SHIFT RN REPORTED TO THIS NURSE THAT DR. MEDELLIN AND DR. HYATT HAVE RECENTLY BEEN AT BEDSIDE, NEW ORDERS RECEIVED. PATIENT PREVIOUSLY REPOSITIONED, ORAL CARE PROVIDED, CONTINUOUSLY MONITORING THIS PATIENT
--- NOTE | 2019-01-08 20:11 | NUR ---
DR. YUNG NOTIFIED OF CONSULT FOR VASCULAR ACCESS. Paul STATES HE WILL BE IN TO [facility]
--- NOTE | 2019-01-08 20:31 | NUR ---
PATIENT CONVERT FROM ST RATE OF 160'S TO SR RATE OF 95 WHILE THIS NURSE AND FAMILY AT BEDSIDE, WHILE THIS NURSE DOING EDUCATION WITH FAMILY REGARDING MEDICATION DRIPS THAT THIS PATIENT IS CURRENTLY ON. B/P'S ALSO IMMEDIATELY IMPROVED. WILL CONTINUE TO MONITOR AND TITRATE LEVOPHED GTT 1ST, PER DR. HYATT REQUEST.
--- NOTE | 2019-01-08 21:00 | NUR ---
PATIENT REPOSITIONED. DR. YUNG AT BEDSIDE FOR CVL PLACEMENT.
--- NOTE | 2019-01-08 21:15 | NUR ---
CVL PLACEMENT COMPLETE BY DR. YUNG
--- NOTE | 2019-01-08 21:30 | NUR ---
FAMILY BACK AT BEDSIDE, ADDITIONAL UPDATE GIVEN, PLAN OF CARE REVIEWED FOR THIS PATIENT WITH FAMILY
--- NOTE | 2019-01-08 22:18 | NUR ---
RECEIVED REPORT FROM RADIOLOGY, OK TO USE NEWLY INSERTED CVL
--- NOTE | 2019-01-08 23:00 | NUR ---
RE-ASSESSMENT COMPLETE, PER NURSING FLOWSHEET. PATIENT REPOSITIONED, ORAL CARE PROVIDED. CONTINUOUSLY MONITORING VS AND TITRATING LEVOPHED GTT ACCORDINGLY, SEE IV FLOWSHEET.
--- NOTE | 2019-01-08 23:45 | NUR ---
DR SINHA NOTIFIED OF THIS PATIENT CONSULT, UPDATE/HISTORY FOR THIS PATIENT GIVEN TO DR. SINHA. NEW ORDERS RECEIVED. ABG RESULTS GIVEN TO DR. SINHA, BY RT, ADJUSTMENTS TO VENTILATOR MADE PER DR SINHA ORDER. CONTINUING TO MONITOR VS AND TITRATE LEVOPHED GTT ACCORDINGLY
[2019-01-09] VITALS (42 sets, daily range): BP systolic 000–142; BP diastolic 000–60
--- NOTE | 2019-01-09 01:00 | NUR ---
PATIENT REPOSITIONED. CONTINUOSLY MONITORING VS AND TITRATING LEVOPHED GTT ACCORDINGLY. CONTINUE POC
--- NOTE | 2019-01-09 03:00 | NUR ---
RE-ASSESSMENT COMPLETE, PATIENT REPOSITIONED, ORAL CARE PROVIDED. VSS AT THIS TIME, CONTINUING POC
--- NOTE | 2019-01-09 05:00 | NUR ---
PATIENT REPOSITIONED, CONTINUOSLY MONITORING THIS PATIENT'S VS, PREVIOUSLY HAD TO START SLOWLY INCREASING LEVOPHED GTT VS DECREASING SECONDARY TO HYPOTENSION. THIS NURSE AT THIS PATIENT'S BEDSIDE FOR DIRECT VISUALIZATION OF THIS PATIENT
--- NOTE | 2019-01-09 05:50 | NUR ---
UPDATE GIVEN TO VIA TELEPHONE, QUESTIONS ANSWERED
--- NOTE | 2019-01-09 06:00 | NUR ---
DR. LINCOLN NOTIFIED OF THIS PATIENT BEING FEBRILE WITH TEMP OF 102.4 ORALLY. NEW ORDERS RECEIVED
--- NOTE | 2019-01-09 06:30 | NUR ---
EKG RHYTHM CHANGE NOTED, STAT EKG OBTAINED, THIS NURSE CONTINUES AT BEDSIDE FOR CONSTANT VISUALIZATION OF THIS PATIENT
--- NOTE | 2019-01-09 06:37 | NUR ---
2ND EKG OBTAINED FOR ADDITIONAL EKG CHANGES IN THIS PATIENT
[2019-01-09 06:47] LABS: BASOPHILS 0.1 % (0-2); EOSINOPHILS 0 % (0-7); HEMOGLOBIN 11.3 g/dL (13.5-17.5); IMMATURE GRANULOCYTES 0.4 % (0-5); LYMPHOCYTES 3.2 % (15-50); MCH 32.9 pg (26.0-34.0); MCHC 30.1 g/dL (31.0-37.0); MONOCYTES 4.7 % (2-11); NEUTROPHILS 91.6 % (40-80); PLATELET COUNT 152 10x3/uL (130-400); RBC 3.43 10x6/uL (4.20-6.10)
[2019-01-09 06:49] LABS: HEMATOCRIT 37.6 % (42.0-54.0); MCV 109.6 fL (80.0-100.0); WBC 10.7 10x3/uL (4.8-10.8)
--- NOTE | 2019-01-09 06:50 | NUR ---
DR. MEDELLIN PAGED TO NOTIFY OF EKG CHANGES FOR THIS PATIENT
--- NOTE | 2019-01-09 06:56 | NUR ---
CODE BLUE INITIATED, CHEST COMPRESSION STARTED. SEE CODE SHEET
[2019-01-09 07:04] LABS: INR 3.02 (0.85-1.17); PROTIME 30.5 SECONDS (11.6-15.0)
[2019-01-09 07:05] LABS: APTT 57.1 SECONDS (22.8-39.4)
[2019-01-09 07:11] LABS: CALCIUM 8.7 mg/dL (8.5-10.1); VANCOMYCIN - RANDOM 7.8 ug/mL (10.0-20.0)
[2019-01-09 07:12] LABS: CARBON DIOXIDE 11.2 mmol/L (21.0-32.0)
--- NOTE | 2019-01-09 07:13 | NUR ---
PATIENT MAINTAINING HR/RHYTHM INDEPENDENTLY. CODE BLUE ENDED
[2019-01-09 07:15] LABS: ANION GAP 36.7 mmol/L (8-16); POTASSIUM - SERUM 8.9 mmol/L (3.5-5.1); TROPONIN-I 12.571 ng/mL (0.000-0.060)
--- NOTE | 2019-01-09 07:23 | NUR ---
PATIENT HYPOTENSIVE, BRADYCARDIC, NO PALPABLE PULSE, CODE BLUE INITIATED, CHEST COMPRESSIONS STARTED. SEE CODE SHEET
--- NOTE | 2019-01-09 07:32 | NUR ---
PATIENT WITH PALPABLE HR IN LEFT GROIN, INDEPENDENTLY MAINTAINING B/P, HR & RHYTHM. PATIENT PREVIOUSLY NOTIFIED OF ACUTE CHANGES IN THIS PATIENT AND ARE PRESENT IN WAITING ROOM.
--- NOTE | 2019-01-09 07:35 | NUR ---
DR MEDELLIN NOTIFIED BY NICOLÁS GARCIA, OF THIS PATIENT PREVIOUS RHYTHM CHANGE AND CURRENT STATUS.
--- NOTE | 2019-01-09 08:00 | NUR ---
PATIENT ASYSTOLTE, CODE BLUE INTIATED, CPR INITIATED. SEE CODE BLUE FLOWSHEET
--- NOTE | 2019-01-09 08:05 | NUR ---
PATIENT INDEPENDENTLY MAINTAINING HR/RHYTHM AT THIS TIME, CODE BLUE ENDED.
--- NOTE | 2019-01-09 08:10 | NUR ---
DR. KHALIL SPEAKING WITH FAMILY AT THIS TIME. FAMILY DOES NOT WISH FOR ANY ADDITIONAL HEROIC MEASURES TO BE TAKEN AND THIS TIME AND PER DISCUSSION WITH DR. KHALIL, WOULD LIKET TO MAKE THIS PATIENT A DNR. FAMILY AT BEDSIDE, UPDATE GIVEN, QUWSTIONS ANSWERED.
--- NOTE | 2019-01-09 08:26 | NUR ---
FAMILY AND DR. HYATT AT BEDSIDE. PATIENT ASYSTOLE. DR. HYATT PRONOUNCED, SEE EKG STRIP
--- NOTE | 2019-01-09 10:05 | NUR ---
DR. MEDELLIN NOTIFIED OF PATIENT PASSING.
--- NOTE | 2019-01-09 11:06 | NUR ---
JERZY NOTIFIED OF PASSING AT 0903. HOME IN UNIT PICKING UP BODY. CERTIFICATE PLACED IN CHART. COPY GIVEN TO HOME. NO PERSONAL BELONGINGS.
--- NOTE | 2019-01-09 16:38 | MORECARE ---
CASE MANAGEMENT DISCHARGE SUMMARY PATIENT: HAILE CABEZAS UNIT: [id number] ADM DATE: 01/05/19 AGE: 63 : 51 SEX: M ROOM/BED: D.2307 AUTHOR: DUSTIN,DOC PHYSICIAN: REFERRING PHYSICIAN: GAIL HYATT MD DATE OF SERVICE: 01/09/19 Discharge Plan Patient Name: HAILE CABEZAS Facility: [facility]:[place] : 1955 Planned Disposition: Home Anticipated Discharge Date: Discharge Date: 01/09/2019 Expected LOS: Initial Reviewer: [email or web address] Initial Review Date: 01/05/2019 Generated: 01/09/19 5:38 pm Comments DCP- Discharge Planning Updated by [email or web address]: Alejandro Bruce on 01/08/19 12:[address] Patient Name: HAILE CABEZAS Admission Status: ER Accout number: [id number] Admission Date: 01-05-2019 : 1955 Admission Diagnosis:WEAKNESS Attending: GAIL HYATT Current LOS: 3 Anticipated DC Date: Planned Disposition: Home Primary Insurance: MEDICARE A & B Discharge Planning Comments: CM MET WITH PT AND SPOUSE IN ROOM TO DISCUSS DISCHARGE PLANNING AND NEEDS. HAILE CABEZAS provided verbal consent to discuss current and ongoing needs with/in the presence of: SPOUSE, VÍCTOR. PT REPORTS LIVING AT HOME INDEPENDENTLY WITH HIS . PT HAS WHEELCHAIR FROM [facility]. PT HAS NO OUTSIDE SERVICES ASSISTING IN THE HOME. PT GOES TO [facility] MWF, 1000AM, [employer]. CM DISCUSSED AVAILABILITY OF HOME HEALTH, REHAB SERVICES AND MEDICAL EQUIPMENT. PT DENIES DISCHARGE NEEDS AT THIS TIME. PT'S SPOUSE TO TRANSPORT FOR DISCHARGE HOME. CM PROVIDED CM CONTACT [facility] PHONE NUMBERS FOR ANY NEEDS OR CONCERNS THAT MAY NEED ADDRESSED. PT PLANS TO DISCHARGE HOME WITH SPOUSE, NO ANTICIPATED DISCHARGE NEEDS AT THIS TIME. CM TO FOLLOW AND ASSIST IF NEEDED. Reliability Specialist: Alejandro Bruce DCPIA - Discharge Planning Initial Assessment Updated by [email or web address]: Alejandro Bruce on 01/08/19 1:25 pm * Is the patient Alert and Oriented? Yes * How many steps to enter\exit or inside your home? * PCP DR. JAZZ LEAL * Pharmacy [facility] * Preadmission Environment Home with Family * ADLs Independent * Equipment Wheelchair * Other Equipment [facility]- MEDICAL EQUIPMENT PROVIDER * List name and contact numbers for known caregivers / representatives who currently or will assist patient after discharge: VÍCTOR CABEZAS, SPOUSE, * Verbal permission to speak to the caregivers and representatives has been obtained from the patient. Yes * Community resources currently utilized Other * Please name any agencies selected above. OUTPATIENT DIALYSIS, [facility], MWF, 1000, [employer] * Additional services required to return to the preadmission environment? No * Can the patient safely return to the preadmission environment? Yes * Has this patient been hospitalized within the prior 30 days at any hospital? No Last DP export: 01/08/19 12:36 pm Patient Name: HAILE CABEZAS Page 60529 at 1638 All edits/amendments must be made on the electronic document DICTATION DATE: 01/09/191636 WELT STITCHER: SHENA 01/09/191636 RPT#: [id number] DC DATE:01/09/19 STATUS: DIS IN [facility] [address] [place] [address] END OF REPORT
--- NOTE | 2019-01-09 16:42 | CN ---
PATIENT NAME:HAILE CABEZAS MEDICAL RECORD: [id number] : 51 LOCATION:[id number] ADMIT DATE: 01/05/19 ACCOUNT: [id number] CONSULTING PHYSICIAN: KENDRICK MEDELLIN MD REFERRING PHYSICIAN: GAIL HYATT MD DATE OF CONSULTATION: 01/08/2019 DIAGNOSES: 1. Hypotension. 2. Atrial fibrillation with rapid ventricular response. 3. Peripheral vascular disease. 4. Status post respiratory failure, requiring intubation. 5. Diabetes. 6. End-stage renal failure, on dialysis. HISTORY OF PRESENT ILLNESS: Mr. Cabezas has past history of peripheral vascular disease. He was admitted with generalized weakness and claudication symptomatology with limb-threatening ischemia in both limbs. He underwent a procedure today by interventional radiology and supposedly after the first injection of contrast, had a shock-like reaction. It is unknown if he was premedicated for contrast allergy. Contrast allergy is on his med list now. He is on high-dose Levophed here in the unit with blood pressure systolic in the 80s. Initially, his heart rate was at 180-200 range, now in the 160-170 range, is irregularly irregular, compatible with atrial fibrillation. As far as we know, he does not have history of dysrhythmia. PHYSICAL EXAMINATION: GENERAL APPEARANCE: Well-nourished, well-developed, appears stated age. Level of distress, comfortable. PSYCHIATRIC: Mental status, alert, normal affect. Orientation, oriented to time, place and person. EYES: Lids and conjunctiva, noninjected. No discharge, no pallor. ENT: Lips, teeth, gums, normal dentition. Oropharynx, no cyanosis, no pallor. NECK: Carotid arteries, bilateral normal upstroke, no bruits, no thrills. JUGULAR VEINS: No jugular venous pressure or distention. CERVICAL LYMPH NODES: Nontender, nonenlarged. THYROID: Not enlarged. Nontender. No nodules. LUNGS: Respiratory effort, unlabored. CHEST: Normal curvature. No thoracic deformity. No chest wall tenderness. Percussion, resonant. Auscultation, clear. No wheezes, no rales, no rhonchi. CARDIOVASCULAR: Precordial exam, nondisplaced. No heaves or pericardial thrills. Rate and rhythm, regular. Heart sounds, normal S1, normal S2. No S3, no gallop, no rub. Systolic murmur, not heard. Diastolic murmur, not heard. EXTREMITIES: No cyanosis, no edema. Peripheral pulses, full and equal in all extremities, except as noted. No bruits appreciated. ABDOMEN: Soft, nondistended. Normal aorta. No bruit. Nontender. No masses. Liver, nontender, no hepatomegaly. Spleen, nontender, no splenomegaly. MUSCULOSKELETAL: No joint tenderness. No joint swelling. No erythema. NEUROLOGICAL: Normal gait, normal strength, normal tone. SKIN: Warm and dry. OVERALL IMPRESSION: Atrial fibrillation with rapid ventricular response. At this time, it appears that he has cardiomyopathy from his med list with valsartan and Coreg, but it does not appear that he has a history of atrial fibrillation. With his hypotension, we will have to use digoxin 0.5 mg IV CONSULT REPORT [id number] HAILE CABEZAS followed by 0.25 q. 4 hours to load him and then dose the digoxin based on his renal insufficiency after that and his heart rate. At this time, we will get echo in the a.m. Further care depends upon the results with the digoxin load. TRANSINT:[id number] Voice Confirmation ID: [id number] DOCUMENT ID: [id number] KENDRICK MEDELLIN MD at 1642 CC: [id number] DICTATION DATE: 01/08/191920 INSTRUMENT MAINTENANCE SUPERVISOR: 01/08/192013 DIS IN 01/09/19 [facility] [address] [id number]
== END 2019-01-09 11:23 | DRG 299 ==
LOC: D.ER 11:04 → D.M2 14:30 → D.ICU 14:30 → D.EDHOLD 14:30 → D.M2 16:14 → D.SDCHOLD 01-06 13:46 → D.M2 01-06 13:47 → D.ICU 01-08 18:17
PROVIDERS: Emergency Medicine; Internal Medicine Nephrology; Radiology Diagnostic Radiology; ADMIT Internal Medicine Nephrology; ATTEND Internal Medicine Nephrology
PROC: 5A1D70Z Performance of Urinary Filtration, Intermittent, Less than 6 Hours Per Day (ICD-10-PCS; principal; 2019-01-06)
PROC: 05HN33Z Insertion of Infusion Device into Left Internal Jugular Vein, Percutaneous Approach (ICD-10-PCS; 2019-01-08)
PROC: B544ZZA Ultrasonography of Left Jugular Veins, Guidance (ICD-10-PCS; 2019-01-08)
PROC: B41D1ZZ Fluoroscopy of Aorta and Bilateral Lower Extremity Arteries using Low Osmolar Contrast (ICD-10-PCS; 2019-01-08)
PROC: 5A12012 Performance of Cardiac Output, Single, Manual (ICD-10-PCS; 2019-01-08)
PROC: 0BH17EZ Insertion of Endotracheal Airway into Trachea, Via Natural or Artificial Opening (ICD-10-PCS; 2019-01-08)
PROC: 5A1945Z Respiratory Ventilation, 24-96 Consecutive Hours (ICD-10-PCS; 2019-01-08)
PROC: 5A12012 Performance of Cardiac Output, Single, Manual (ICD-10-PCS; 2019-01-09)
DX: E11.51 Type 2 diabetes mellitus with diabetic peripheral angiopathy without gangrene (principal); N18.6 End stage renal disease; J95.821 Acute postprocedural respiratory failure; I13.2 Hypertensive heart and chronic kidney disease with heart failure and with stage 5 chronic kidney disease, or end stage renal disease; I42.9 Cardiomyopathy, unspecified; L03.116 Cellulitis of left lower limb; L03.115 Cellulitis of right lower limb; I70.223 Atherosclerosis of native arteries of extremities with rest pain, bilateral legs; Z99.2 Dependence on renal dialysis; Z66 Do not resuscitate; E11.22 Type 2 diabetes mellitus with diabetic chronic kidney disease; I50.9 Heart failure, unspecified; E87.5 Hyperkalemia; T50.8X5A Adverse effect of diagnostic agents, initial encounter; I95.9 Hypotension, unspecified; I48.91 Unspecified atrial fibrillation; R40.2144 Coma scale, eyes open, spontaneous, 24 hours or more after hospital admission; R40.2344 Coma scale, best motor response, flexion withdrawal, 24 hours or more after hospital admission; R40.2214 Coma scale, best verbal response, none, 24 hours or more after hospital admission; Y84.8 Other medical procedures as the cause of abnormal reaction of the patient, or of later complication, without mention of misadventure at the time of the procedure; Z86.73 Personal history of transient ischemic attack (TIA), and cerebral infarction without residual deficits